=== PATIENT | female | born 1980 | race Hispanic/Latino ===

== ENCOUNTER 2020-02-26 11:13 | Emergency (ER) | payer MEDICAID, SELFPAY ==
--- NOTE | ~2020-02-26 | XR_ITS ---
EXAMINATION: XR chest 1V portable DATE: 02/26/2020 12:36 INDICATION: Cough and fever. Bilateral flank pain. TECHNIQUE: A single frontal view of the chest was obtained. COMPARISON: CT abdomen and pelvis 10/15/2016 FINDINGS: The chest demonstrates clear lungs without pneumonia, pleural effusion, or pneumothorax. Th e heart size is normal. IMPRESSION: 1. No acute cardiopulmonary disease. Reviewed, dictated and finalized at location A.
[2020-02-26 11:27] VITALS: BP 118/75; PULSE 100; RESP 16; TEMP 37.3; O2SAT 99
--- NOTE | 2020-02-26 11:49 | ECG_ITS ---
Measurements Intervals [place] Rate: 89 P: 40 DE: 148 QRS: 7 QRSD: 79 T: 15 QT: 349 QTc: 425 Interpretive Statements SINUS RHYTHM NORMAL ECG Electronically Signed On 02-26-2020 12:45:51 CDT by Bryon Noriega D.O.
[2020-02-26 11:50] VITALS: BP 117/87; PULSE 92; RESP 18; O2SAT 95
--- NOTE | 2020-02-26 11:50 | ED.FEVER ---
HPI - Fever General Chief Complaint: Fever Stated Complaint: lower back pain, fever, urinary issues Time Seen by Provider: 02/26/20 11:40 Source: patient Mode of arrival: ambulatory Limitations: no limitations History of Present Illness HPI Narrative: This patient is a 39 year old female who presents for evaluation of subjective fever, cough, and back pain. Patient developed nonproductive cough 3 days ago. She also complains of mid chest pain with she coughs. LAst night she developed subjective fever and chills. She also has dysuria and burning back pain. Her back pain is located mid back and it radiates down her back. She denies sick contacts. Onset (ago): day(s) (3) Related Data Home Medications Medication Instructions Recorded Confirmed metformin 1,000 mg PO BID 02/26/20 Allergies Allergy/AdvReac Type Severity Reaction Status Date / Time No Known Allergies Allergy Verified 02/26/20 11:31 Review of Systems Review of Systems: All systems reviewed & are unremarkable except as noted in HPI and below Constitutional: Constitutional: Reports chills and Reports fever(s) Cardiovascular: Cardiovascular: Reports chest pain (when cough) Respiratory: Respiratory: Reports cough Gastrointestinal: Gastrointestinal: Reports abdominal pain, Denies diarrhea, Reports nausea and Denies vomiting Genitourinary: Genitourinary: Reports dysuria Musculoskeletal: Musculoskeletal: Reports back pain PMFSH Past Medical History Medical History (Updated 02/26/20 @ 14:46 by Kelly Ramos MD) Diabetes mellitus Surgical History Surgical History (Updated 02/26/20 @ 11:51 by Kelly Ramos MD) Hx of cholecystectomy Social History Social History Gender identity (if verbalized by the patient): Female Exam Narrative: Exam Narrative: GENERAL: Well-appearing, well-nourished, and in no acute distress. HEAD: Normocephalic, atraumatic EYES: PERRLA and EOMI, conjunctiva clear without discharge EARS: TM's clear bilaterally without erythema or dullness THROAT:Mucous membranes moist, Oropharynx normal without erythema, exudate, peritonsillar swelling or fluctuance NECK: Supple, without lymphadenopathy or mass RESPIRATORY: No respiratory distress, Airway patent, Respirations non-labored, Clear to auscultation without rales, rhonchi or wheeze HEART: Regular rate and rhythm. No murmur heard. Normal peripheral pulses. ABDOMEN: Soft,mild suprapubic tenderness, nondistended, no guarding, no rebound normal active bowel sounds. No masses. No rebound or guarding, No organomegaly. bilateral CVA EXTREMITIES: No edema, normal strength with full range of motion. SKIN: Warm, dry, normal color without rash NEURO: Alert and oriented x3. CN 2-12 grossly intact. No focal deficits. PSYCH: Normal mood and affect. Course Reevaluation(s) Reevaluation #1: I have discussed with patient that she will be discharged with antibiotics for UTI. She has also been tested for COVID. She has no AGAP to suggest DKA Date: 02/26/20 Time: 14:43 Vital Signs Vital signs: Vital Signs Temperature 99.2 F 02/26/20 11:27 Pulse Rate 100 02/26/20 11:27 Respiratory Rate 16 02/26/20 11:27 Blood Pressure 118/75 02/26/20 11:27 Pulse Oximetry 99 02/26/20 11:27 Temperature 99.2 F 02/26/20 12:30 Pulse Rate 70 02/26/20 15:03 Respiratory Rate 18 02/26/20 15:03 Blood Pressure 102/79 02/26/20 15:03 Pulse Oximetry 97 02/26/20 15:03 MDM - Fever Lab Data Attestation: I reviewed the patient's lab results. Result diagrams: 02/26/20 12:05 02/26/20 12:05 Labs: Lab Results 02/26/20 02/26/20 02/26/20 Range/Units 12:05 12:05 12:05 WBC 3.8 L (4.5-10.0) K/mm3 RBC 4.68 (4.2-5.4) M/mm3 Hgb 14.8 (12.0-15.0) g/dL Hct 42.0 (37.0-47.0) % MCV 89.7 (80-100) fl MCH 31.6 (26-34) pg MCHC 35.2 (32-36) g/dl RDW 12.0 (11.5-14.5) % Plt Count 225 (150-375)
[2020-02-26] MEDS: KETOROLAC 30 MG/ML VIAL (*BKC) IV PUSH (12:06)
[2020-02-26] MEDS: ONDANSETRON INJ 4 MG/2 ML VIAL IV PUSH (12:06)
[2020-02-26 12:21] LABS: Basophils Percent Auto 0.5 % (0.2-1.2); Eosinophils Percent Auto 1.1 % (0-4.4); Hemoglobin 14.8 g/dL (12.0-15.0); Immature Granulocyte Absolute 0.01 K/mm3 (0.00-0.031); Immature Granulocyte Percent A 0.3 % (0-0.5); Lymphocytes Absolute Auto 1.56 K/mm3 (0.9-3.2); Lymphocytes Percent Auto 41.3 % (18.3-44.2); Mean Corpuscular HGB Conc 35.2 g/dl (32-36); Mean Corpuscular Hemoglobin 31.6 pg (26-34); Mean Corpuscular Volume 89.7 fl (80-100); Mean Platelet Volume 10.1 fl (7.4-10.4); Monocytes Absolute Auto 0.4 K/mm3 (0.1-0.6); Monocytes Percent Auto 11.1 % (2.6-8.5); Neutrophils Absolute Auto 1.7 K/mm3 (1.3-6.7); Neutrophils Percent Auto 45.7 % (45.5-73.1); Platelet Count Result 225 k/mm3 (150-375); Red Blood Count 4.68 M/mm3 (4.2-5.4); White Blood Count 3.8 K/mm3 (4.5-10.0)
[2020-02-26 12:26] LABS: Add Urine Microscopic? YES; Appearance Urine Clear (Clear); Bacteria Urine Trace /hpf; Bilirubin Urine Negative (Negative); Color Urine Yellow (Yellow); Glucose Urine UA 3+ mg/dL (Negative); Ketones Urine Negative (Negative); Leukocyte Esterase Ur Trace LEU/UL (Negative); Mucus Urine Rare /lpf; Nitrate Urine Positive (Negative); Protein Urine 3+ mg/dL (Negative); Specific Grav Ur 1.022 (1.001-1.035); Squamous Epithelial Cell Urine Moderate /hpf (Few); Urobilinogen Urine Negative mg/dL (<2.0); WBC Urine 21-30 /hpf
[2020-02-26 12:27] LABS: Blood Urine Negative (Negative)
[2020-02-26 12:30] VITALS: TEMP 37.3
[2020-02-26 12:31] LABS: Lactic Acid Reflex 1.1 mmol/L (0.7-2.1)
[2020-02-26 12:36] LABS: Alanine Aminotransferase 107 U/L (4-35); Albumin Level 3.7 g/dL (3.5-5.1); Alkaline Phosphatase 69 U/L (38-126); Anion Gap 8 mmol/L (8-16); Aspartate Amino Transferase 65 U/L (14-36); Bilirubin,Total 0.1 mg/dL (0.2-1.3); Blood Urea Nitrogen 9 mg/dL (7-17); CRP 1.1 mg/dL (<1.0); Calcium 8.3 mg/dL (8.4-10.2); Carbon Dioxide 25 mmol/L (22-30); Chloride 99 mmol/L (98-107); Estimated CRCL calculation 78 ml/min; Estimated Glomerular Filt Rate > 60; Glucose 263 mg/dL (65-105); Potassium 3.8 mmol/L (3.4-5.0); Sodium 132 mmol/L (137-145)
[2020-02-26 12:38] LABS: D Dimer 0.31 ug/mL (<0.48)
[2020-02-26 12:55] VITALS: BP 115/85; PULSE 86; RESP 20; O2SAT 97
[2020-02-26 14:13] VITALS: BP 102/73; PULSE 76; RESP 18; O2SAT 96
[2020-02-26 15:03] VITALS: BP 102/79; PULSE 70; RESP 18; O2SAT 97
[2020-02-26 22:22] LABS: SARS-CoV-2 RNA PCR Positive
== END 2020-02-26 15:05 | disposition home or self-care (01) ==
PROVIDERS: Emergency Provider General Practice
DX: U07.1 COVID-19 (principal); N39.0 Urinary tract infection, site not specified; E11.9 Type 2 diabetes mellitus without complications; Z79.84 Long term (current) use of oral hypoglycemic drugs
CPT/HCPCS: 36415; 71045; 80053; 81001; 81025; 83605; 85025; 85380; 86140; 87086; 87088; 87635; 93005; 96374; 96375; 99284; C9803; J1885; J2405; U0003

== ENCOUNTER 2020-03-17 07:13 | Inpatient (IN) | payer MEDICAID, SELFPAY ==
--- NOTE | ~2020-03-17 | CT_ITS ---
EXAMINATION: CT abdomen pelvis w con INDICATION: Right lower quadrant pain, nausea and vomiting TECHNIQUE: Computed tomographic images of the abdomen and pelvis were obtained after the administrati on of 100 cc of Omnipaque 350 intravenous contrast. The dose-length product (DLP) was 474.09 mGy-cm. Automated exposure control and iterative reconstruction technique were employed. COMPARISON: 10/15/2016 FINDINGS: There are patchy opacities of the lung bases. The heart size is normal. The liver is diffus agustina low in attenuation when compared with the spleen, consistent with hepatic steatosis. The gallblad ivelisse is surgically absent. The spleen, pancreas, and adrenal glands are normal. There is patchy perfus ion throughout the right kidney and in the left kidney upper pole. There is urothelial enhancement of the ureters. Circumferential bladder wall thickening is noted. The appendix is normal. No pathologic ally enlarged abdominal or pelvic lymph nodes are identified. There is no free intraperitoneal gas or evidence of bowel obstruction. IMPRESSION: 1. Bladder wall thickening, urothelial enhancement of the ureters, and patchy perfusion of the kidney s, findings are suggestive of urinary tract infection with superimposed pyelonephritis. 2. Patchy opacities of the lung bases, consistent with atelectasis versus pneumonia. Reviewed, dictated and finalized at location A. IMPRESSION: 1. Bladder wall thickening, urothelial enhancement of the ureters, and patchy p erfusion of the kidneys, findings are suggestive of urinary tract infection wit h superimposed pyelonephritis. 2. Patchy opacities of the lung bases, consistent with atelectasis versus pneum onia.
--- NOTE | ~2020-03-17 | XR_ITS ---
XR abdomen/kub 1V DATE: 03/18/2020 21:28 INDICATION: Constant nausea, vomiting TECHNIQUE: Portable supine AP views on 03/18/2020 at 2125 hours COMPARISON: 03/17/2020 CT abdomen pelvis FINDINGS: Surgical clips, right upper quadrant, consistent with cholecystectomy. No evidence of bowel obstruction significant abnormal calcification. The lung bases appear clear. Hea rt size appears normal. Included skeletal structures are unremarkable. IMPRESSION: Status post cholecystectomy Nonspecific abdomen Reviewed, dictated and finalized at Location A. Reviewed, dictated and finalized at location A.
--- NOTE | ~2020-03-17 | XR_ITS ---
EXAMINATION: XR chest 2V DATE: 03/17/2020 11:33 INDICATION: Lung infiltrates on CT TECHNIQUE: Frontal and lateral views of the chest are obtained COMPARISON: CT from today FINDINGS: There are patchy airspace opacities of the mid and lower lung zones. There is no pleural ef fusion or pneumothorax. The cardiomediastinal silhouette is normal. The visualized bones and soft tis sues are unremarkable. Cholecystectomy clips are noted in the right upper quadrant. Contrast from ear lier CT examination partially opacifies the urinary tract. IMPRESSION: 1. Patchy opacities of the mid and lower lung zones consistent with atelectasis versus pneumonia. Reviewed, dictated and finalized at location A.
--- NOTE | ~2020-03-17 | XR_ITS ---
EXAMINATION: XR chest 1V portable INDICATION: Shortness of breath TECHNIQUE: Portable AP chest at 0614 hours COMPARISON: 03/17/2020 FINDINGS: Airspace opacities have increased and now involve all lung zones but are worst in the mid a nd lower lung zones. No pleural effusion or pneumothorax is identified. The cardiomediastinal silhoue tte is normal. IMPRESSION: 1. Increasing bilateral airspace opacities, consistent with pneumonia versus atelectasis. Reviewed, dictated and finalized at location A. IMPRESSION: 1. Increasing bilateral airspace opacities, consistent with pneumonia versus at electasis.
[2020-03-17 07:29] VITALS: BP 131/81; PULSE 120; RESP 31; TEMP 37.9; O2SAT 99
--- NOTE | 2020-03-17 07:42 | ED.ABDPAIN ---
HPI - Abdominal Pain General Chief Complaint: Abdominal Pain Stated Complaint: rlq pain with n/v Time Seen by Provider: 03/17/20 07:25 History of Present Illness HPI narrative: Patient is a 39-year-old female who presents ER with right lower quadrant abdominal pain. Reports symptoms began yesterday in her mid abdomen moved to her right lower quadrant. Associate with nausea and vomiting. Pain is worse with any type of movement. Still has pain when just lying still. Febrile upon arrival here. No urinary symptoms. Related Data Home Medications Medication Instructions Recorded Confirmed metformin 1,000 mg PO BID 02/26/20 03/17/20 Allergies Allergy/AdvReac Type Severity Reaction Status Date / Time No Known Allergies Allergy Verified 02/26/20 11:31 Review of Systems Review of Systems: All systems reviewed & are unremarkable except as noted in HPI and below Constitutional: Constitutional: Denies chills and Reports fever(s) ENT: Denies nasal congestion and Denies sore throat Respiratory: Respiratory: Denies cough and Denies dyspnea Gastrointestinal: Gastrointestinal: Reports abdominal pain, Denies diarrhea, Reports nausea and Reports vomiting Genitourinary: Genitourinary: Denies nocturia and Denies dysuria PMFSH Past Medical History Medical History (Updated 03/17/20 @ 19:19 by Trace Silverio MD) COVID-19 (~02/26/20) Hepatic steatosis Type 2 diabetes mellitus Surgical History Surgical History (Updated 03/17/20 @ 13:59 by Ashlee Suarez PA-C) History of cholecystectomy Family History Family History Mother Diabetes mellitus Social History Social History (Updated 03/17/20 @ 13:59 by Ashlee Suarez PA-C) Social History: Surrogate decision maker: Code status: Full code. Smoking status: Never smoker Alcohol intake: never Substance use: never Substance use type: does not use Additional living arrangements comments: Lives in [place] with her and children. Gender identity (if verbalized by the patient): Female Spiritual care concerns: No Exam Narrative: Exam Narrative: GENERAL: Uncomfortable-appearing, well-nourished, and in no acute distress. HEAD: Normocephalic, atraumatic. ENT: Mucous membranes moist. CHEST: Clear to auscultation. No respiratory distress. HEART: Tachycardic and regular. Normal peripheral pulses. ABDOMEN: Soft, moderate tenderness palpation in the right lower quadrant with guarding, nondistended. EXTREMITIES: Normal range of motion. No edema. SKIN: Warm, dry, no rash. NEURO: Alert and oriented x3. PSYCH: Normal mood and affect. Course Course Emergency Course: Admit to hospitalist service for pyelonephritis. Patient still with persistent tachycardia despite treatment of fever and fluids. Patient also has persistent pain in her lower abdomen and will need more pain control. Vital Signs Vital signs: Vital Signs Temperature 100.2 F H 03/17/20 07:29 Pulse Rate 120 H 03/17/20 07:29 Respiratory Rate 31 H 03/17/20 07:29 Blood Pressure 131/81 03/17/20 07:29 Pulse Oximetry 99 03/17/20 07:29 Temperature 97.9 F 03/17/20 14:00 Pulse Rate 113 H 03/17/20 14:00 Respiratory Rate 22 H 03/17/20 14:00 Blood Pressure 116/65 03/17/20 14:00 Pulse Oximetry 98 03/17/20 14:00 MDM - Abdominal Pain Lab Data Result diagrams: 03/17/20 07:43 03/17/20 14:10 Labs: Lab Results 03/17/20 03/17/20 03/17/20 Range/Units 07:43 07:43 07:43 WBC 4.7 (4.5-10.0) K/mm3 RBC 4.19 L (4.2-5.4) M/mm3 Hgb 13.2 (12.0-15.0) g/dL Hct 37.3 (37.0-47.0) % MCV 89.0 (80-100) fl MCH 31.5 (26-34) pg MCHC 35.4 (32-36) g/dl RDW 11.6 (11.5-14.5) % Plt Count 326 (150-375) k/mm3 MPV 9.6 (7.4-10.4) fl Immature Gran % (Auto) Not Reportable Neut % (Auto) Not Reportable Lymph % (Auto) Not R
[2020-03-17] MEDS: SODIUM CHLORIDE 0.9% IV 1,000 ML 999 ML IV CONT ×2 (07:44→12:25)
[2020-03-17] MEDS: MORPHINE SULFATE 4 MG/ML INJ IV PUSH ×3 (07:44→20:50)
[2020-03-17] MEDS: ONDANSETRON INJ 4 MG/2 ML VIAL IV PUSH ×4 (07:45→21:16)
[2020-03-17 07:48] LABS: Hematocrit 37.3 % (37.0-47.0); Hemoglobin 13.2 g/dL (12.0-15.0); Mean Corpuscular HGB Conc 35.4 g/dl (32-36); Mean Corpuscular Hemoglobin 31.5 pg (26-34); Mean Platelet Volume 9.6 fl (7.4-10.4); Platelet Count Result 326 k/mm3 (150-375); Red Blood Count 4.19 M/mm3 (4.2-5.4); Red Cell Distribution Width 11.6 % (11.5-14.5); White Blood Count 4.7 K/mm3 (4.5-10.0)
[2020-03-17 08:00] LABS: Alanine Aminotransferase 133 U/L (4-35); Albumin Level 3.7 g/dL (3.5-5.1); Alkaline Phosphatase 157 U/L (38-126); Anion Gap 11 mmol/L (8-16); Aspartate Amino Transferase 118 U/L (14-36); Bilirubin,Total 1.7 mg/dL (0.2-1.3); Blood Urea Nitrogen 16 mg/dL (7-17); Calcium 9.2 mg/dL (8.4-10.2); Carbon Dioxide 23 mmol/L (22-30); Chloride 100 mmol/L (98-107); Estimated CRCL calculation 68 ml/min; Estimated Glomerular Filt Rate > 60; Glucose 336 mg/dL (65-105); INR 1.1; Potassium 3.8 mmol/L (3.4-5.0); Prothrombin Time 13.4 Seconds (11.1-14.7); Sodium 134 mmol/L (137-145)
[2020-03-17 08:01] LABS: Partial Thromboplastin Time 32.3 SECONDS (22.3-36.8)
[2020-03-17 08:09] LABS: Add Urine Microscopic? YES; Appearance Urine Cloudy (Clear); Bacteria Urine Trace /hpf; Bilirubin Urine Negative (Negative); Blood Urine 1+ (Negative); Color Urine Yellow (Yellow); Glucose Urine UA 3+ mg/dL (Negative); Ketones Urine Negative (Negative); Leukocyte Esterase Ur 3+ LEU/UL (Negative); Nitrate Urine Positive (Negative); Protein Urine 2+ mg/dL (Negative); RBC Urine 21-50 /hpf (0-2); Specific Grav Ur 1.018 (1.001-1.035); Squamous Epithelial Cell Urine Occasional /hpf (Few); Transitional Epi Cells Urine Rare /hpf (None Seen); WBC Clumps Urine Present /HPF; WBC Urine >75 /hpf
[2020-03-17 08:14] LABS: Band Neutrophils Percent 19 % (0-6); Eosinophils Absolute Manual 0.04 K/mm3 (0.02-0.5); Eosinophils Percent Manual 1 % (0-4); Lymphocytes Absolute Manual 0.84 K/mm3 (1.1-4.5); Monocytes Absolute Manual 0.14 K/mm3 (0.1-0.90); Monocytes Percent Manual 3 % (3-9); Neutrophils Absolute Manual 3.66 K/mm3 (1.7-7.2); Neutrophils Percent Manual 59 % (46-73); Total Cells Counted 100
[2020-03-17 08:15] LABS: Platelet Estimate Adequate (Adequate)
[2020-03-17 10:25] VITALS: BP 102/75; PULSE 115; RESP 26; O2SAT 100
--- NOTE | 2020-03-17 11:50 | ADMGEN ---
This patient, Tri Patricia, was admitted to 2 Medical Room 260-01. Patient/family oriented to hospital policies and general routines including ID bracelet, bed and alarms, visiting hours, pain management, procedures, bathroom and other care routines, personal items, smoking policy, room service/diet, and visiting hours. Valuables list has been completed. Information on how to activate the Rapid Response Team has been discussed. Patient/Family are encouraged to report perceived risks to care and to ask questions if they do not understand what they are told or what they should do.
[2020-03-17 12:26] VITALS: BP 101/64; PULSE 121; RESP 35; O2SAT 96
[2020-03-17] MEDS: SODIUM CHLORIDE 0.9% IV 1,000 ML 125 ML IV CONT ×2 (12:46→20:50)
[2020-03-17 14:00] VITALS: BP 116/65; PULSE 113; RESP 22; TEMP 36.6; O2SAT 98; BMI 27.2
[2020-03-17 14:28] LABS: Hemoglobin A1C 9.5 % (<5.7)
[2020-03-17 14:29] LABS: Lipase 38 U/L (23-300)
[2020-03-17 14:30] LABS: Lactic Acid Reflex 2.8 mmol/L (0.7-2.1)
[2020-03-17 14:37] LABS: Anion Gap 7 mmol/L (8-16); Blood Urea Nitrogen 15 mg/dL (7-17); Calcium 7.7 mg/dL (8.4-10.2); Carbon Dioxide 21 mmol/L (22-30); Chloride 107 mmol/L (98-107); Estimated CRCL calculation 76 ml/min; Estimated Glomerular Filt Rate > 60; Glucose 258 mg/dL (65-105); Lactate Dehydrogenase 673 U/L (313-618); Magnesium 1.1 mg/dL (1.6-2.3); Potassium 3.6 mmol/L (3.4-5.0); Sodium 135 mmol/L (137-145)
[2020-03-17 14:44] LABS: CRP 17.3 mg/dL (<1.0)
[2020-03-17 15:41] LABS: Hepatitis B Surface Antigen Negative (Negative)
[2020-03-17 15:47] LABS: HAV RESULT Negative (Negative); Hepatitis B Core IgM Result Negative (Negative)
[2020-03-17 15:58] LABS: Hepatitis C Virus Antibody Negative (Negative)
[2020-03-17 17:15] LABS: Reflex Lactic Acid Yes or No Add Lactic
[2020-03-17 17:38] LABS: Glucose Point of Care 325 (65-105)
[2020-03-17 17:52] LABS: Lactic Acid 3.5 mmol/L (0.7-2.1)
[2020-03-17] MEDS: INSULIN ASPART (*BKC) 100 UNITS/ML SUB-Q (17:54)
[2020-03-17 20:54] VITALS: BP 105/60; PULSE 108; RESP 16; TEMP 36.8; O2SAT 99
[2020-03-17] MEDS: guaiFENesin/DEXTROMETHORPHAN 10 ML UDC PO (22:07)
--- NOTE | 2020-03-17 22:30 | PM.IMHP ---
H&P: HPI History of Present Illness Date/Time: 03/17/20 22:30 Chief complaint: Right lower quadrant pain. Narrative: Tri Patricia is a 39-year-old female with type 2 diabetes who presented to the emergency department earlier today from home for evaluation of right lower quadrant pain. For the last couple of days she has had pain in her right lower quadrant radiating in to the right flank and back. She has a difficult time describing the pain and gives no real aggravating or alleviating factors. She has been taking Naprosyn which does not seem to help much. She has also been running a fever for the last 2 days with a decrease in appetite nausea and occasional emesis. Her urine has been a bit darker than usual and she has mild dysuria, but nothing significant. With further questioning it seems like her emesis is related more to coughing fits and her cough has been productive of green phlegm the past few days. She also has mild shortness of breath and occasional chest heaviness related to her coughing fits. It is noted that she was diagnosed with COVID-19 on February 25 after being sick for 2 days and she felt poorly for about 2 weeks but has been afebrile for at least 1 week, aside from the last 2 days. She also reports testing negative for COVID-19 this past Friday, and was able to return to work Friday. Last evening she had some loose stools and she does report a recent history of antibiotic use, being prescribed Bactrim on 02/26/2020 at the time that she was diagnosed with COVID-19. She completed a course of those antibiotics, and it seems like her symptoms resolved. Currently she denies headache, anosmia, dysgeusia, chest pain, racing heart, or pleuritic pain. No blood or mucus in the stools. She has not had any significant diarrhea since admission. No recent travel. She denies vaginal discharge. Review of Systems Review of Systems: Narrative: Twelve systems were reviewed with pertinent positives and negatives as per HPI. Except as documented, all other systems were reviewed and are negative. [facility] Past Medical History Medical History COVID-19 (~02/26/20) Hepatic steatosis Type 2 diabetes mellitus Surgical History Surgical History (Updated 03/17/20 @ 13:59 by Ashlee Suarez PA-C) History of cholecystectomy Family History Family History Mother Diabetes mellitus Social History Social History (Updated 03/17/20 @ 23:56 by Ashlee Suarez PA-C) Social History: Surrogate decision maker: [employer], friend. Code status: Full code. Smoking status: Never smoker Alcohol intake: never Substance use: never Substance use type: does not use Additional living arrangements comments: Lives in [place] with family. Gender identity (if verbalized by the patient): Female Spiritual care concerns: No Meds Home Medications and Allergies Home Medications Medication Instructions Recorded Confirmed Type metformin 1,000 mg PO BID 02/26/20 03/17/20 History Allergies Allergy/AdvReac Type Severity Reaction Status Date / Time No Known Allergies Allergy Verified 02/26/20 11:31 Vital Signs Vital Signs - 24 hr 03/17/20 07:29 03/17/20 10:25 03/17/20 12:26 Temperature 100.2 F H Pulse Rate 120 H 115 H 121 H Respiratory Rate 31 H 26 H 35 H Blood Pressure 131/81 102/75 101/64 Pulse Oximetry 99 100 96 Exam Narrative: Exam Narrative: General: Mildly ill-appearing female in the semi-Post position in bed in no distress. Weight: 67.6 kg. BMI: 27.3. HEENT: PERRL, EOMI. Sclerae anicteric. Oral mucosa tacky. Neck: Supple. No lymphadenopathy. Respiratory: Respirations are even and nonlabored. Faint crackles at both bases. Cardiovascular: Regular rate and rhythm with S1-S2. Gastrointestinal: Abdomen is soft and nondistended with positive bow
[2020-03-18 00:40] LABS: Acetaminophen < 10 ug/mL (10-30)
[2020-03-18] MEDS: MAGNESIUM SULFATE 3GM/D5W100ML 3 GM/100 ML BAG IVPB (01:26)
[2020-03-18] MEDS: ONDANSETRON INJ 4 MG/2 ML VIAL IV PUSH ×5 (01:32→20:59)
[2020-03-18] MEDS: MORPHINE SULFATE 4 MG/ML INJ IV PUSH ×4 (01:33→18:41)
[2020-03-18 04:12] LABS: Glucose Point of Care 330 (65-105)
[2020-03-18] MEDS: SODIUM CHLORIDE 0.9% IV 1,000 ML 125 ML IV CONT (04:39)
[2020-03-18] MEDS: guaiFENesin/DEXTROMETHORPHAN 10 ML UDC PO ×2 (05:33→10:05)
[2020-03-18 05:41] LABS: Hematocrit 31.5 % (37.0-47.0); Mean Corpuscular HGB Conc 34.9 g/dl (32-36); Mean Corpuscular Hemoglobin 31.5 pg (26-34); Mean Corpuscular Volume 90.3 fl (80-100); Mean Platelet Volume 10.2 fl (7.4-10.4); Platelet Count Result 209 k/mm3 (150-375); Red Blood Count 3.49 M/mm3 (4.2-5.4); Red Cell Distribution Width 12.4 % (11.5-14.5); White Blood Count 21.4 K/mm3 (4.5-10.0)
[2020-03-18 05:51] LABS: INR 1.5; Prothrombin Time 17.6 Seconds (11.1-14.7)
[2020-03-18 05:52] LABS: Partial Thromboplastin Time 42.5 SECONDS (22.3-36.8)
[2020-03-18 05:59] LABS: Lactic Acid 2.1 mmol/L (0.7-2.1)
[2020-03-18 06:00] VITALS: BP 112/74; PULSE 104; RESP 18; TEMP 36.7; O2SAT 98
[2020-03-18 06:32] LABS: Alanine Aminotransferase 120 U/L (4-35); Albumin Level 2.8 g/dL (3.5-5.1); Alkaline Phosphatase 115 U/L (38-126); Anion Gap 6 mmol/L (8-16); Aspartate Amino Transferase 71 U/L (14-36); Bilirubin,Total 0.6 mg/dL (0.2-1.3); Blood Urea Nitrogen 14 mg/dL (7-17); Calcium 7.5 mg/dL (8.4-10.2); Carbon Dioxide 23 mmol/L (22-30); Chloride 104 mmol/L (98-107); Estimated CRCL calculation 66 ml/min; Estimated Glomerular Filt Rate > 60; Glucose 309 mg/dL (65-105); Lactate Dehydrogenase 595 U/L (313-618); Magnesium 2.5 mg/dL (1.6-2.3); Potassium 3.5 mmol/L (3.4-5.0); Sodium 133 mmol/L (137-145)
[2020-03-18 09:04] LABS: Band Neutrophils Percent 14 % (0-6); Lymphocytes Absolute Manual 1.92 K/mm3 (1.1-4.5); Neutrophils Absolute Manual 19.47 K/mm3 (1.7-7.2); Neutrophils Percent Manual 77 % (46-73); Total Cells Counted 100
[2020-03-18 09:05] LABS: Platelet Estimate Adequate (Adequate)
[2020-03-18] MEDS: ENOXAPARIN 40 MG/0.4 ML SYRINGE SUB-Q (09:11)
[2020-03-18 09:31] LABS: Glucose Point of Care 256 (65-105)
[2020-03-18] MEDS: INSULIN ASPART (*BKC) 100 UNITS/ML SUB-Q ×3 (09:33→17:19)
[2020-03-18 09:36] LABS: CRP 33.5 mg/dL (<1.0)
[2020-03-18 11:43] LABS: Glucose Point of Care 271 (65-105)
--- NOTE | 2020-03-18 11:51 | PM.IMPN ---
Progress Note: A&P Assessment and Plan (1) Septicemia: Code(s): A41.9 - Sepsis, unspecified organism Status: Acute Assessment and Plan: Severe sepsis with septicemia present on admission and supported by low-grade fever, tachycardia, and elevated lactic acid level. Related to the pyelonephritis and bacteremia +/- PNA. Still tachycardic. Fever curve is improved. White count is much higher with persistent bandemia. Urine culture pending. Blood culture (2of2) growing gram-negative bacilli from aerobic and anaerobic bottles. INR now elevated. Will change to Zosyn. (2) Pyelonephritis: Code(s): N12 - Tubulo-interstitial nephritis, not specified as acute or chronic Status: Acute Assessment and Plan: UA consistent with UTI. CT Abd/pelvis showing bladder wall thickening, urothelial enhancement of the ureters, and patchy perfusion of the kidneys c/w pyelonephritis. As above. (3) Elevated LFTs: Code(s): R79.89 - Other specified abnormal findings of blood chemistry Status: Acute Assessment and Plan: AST 118 and ALT 133 on admission. AST/ALT trending down today. LFTs were elevated in February at 65 and 107 respectfully. Acetaminophen level negative. Hepatitis panel negative. CT scan shows that the liver is diffusely low in attenuation when compared with the spleen, consistent with hepatic steatosis. She is known to have hepatic steatosis. Levels probably elevated more acutely related to the ongoing infection with underlying chronic elevation. Continue to follow. (4) Opacity of lung on imaging study: Code(s): R91.8 - Other nonspecific abnormal finding of lung field Status: Acute Assessment and Plan: CXR showing patchy opacities of the mid and lower lung zones. CT Abdomen also showing patchy opacities of the lung bases. Atelectasis versus pneumonia. Patient does have a productive cough and pleuritic chest pain to suggest pneumonia. This may well be residual from a recent COVID-19 but concern for post-viral PNA. Sputum Cx ordered. Will check MRSA swab. Add Vanco. (5) Type 2 diabetes mellitus: Qualifiers: Diabetes mellitus [employer] insulin use: without [employer] use Code(s): E11.9 - Type 2 diabetes mellitus without complications Status: Acute Assessment and Plan: A1c 9.6. Takes Metformin at home and this is on hold. The patient's blood glucose was reviewed on 03/18 Glucose remains elevated Continue AccuCheks covering with sliding scale. Hypoglycemia protocol available as needed. Add Levemir. (6) DVT prophylaxis: Code(s): Z29.9 - Encounter for prophylactic measures, unspecified Status: Acute Assessment and Plan: Lovenox Subjective Date/time seen: 03/18/20 11:51 Interval history: 39yo female with DM here for pyelonephritis and possible PNA. Patient with pleuritic CP and cough productive of greenish sputum. Tested positive for COVID on 02/25 but negative on 03/11. Still with mid back pain R>L. No fevers but having chills. Was having fevers at home. +n/v but tolerating clears today. Walking to the BR. Complains of RLQ and flank abd pain. For her DM, she checks her glucose at home BID. In the morning, glucose runs 160-180 but into the 300's in the evenings. Exam Narrative: Exam Narrative: Tm 100.2 98.1 112/74 104 18 98% ra Gen - NARD Sitting up in bed Chest - bibasilar inspiratory crackles. Patient had difficulty taking deep breaths. Normal respiratory rate. No conversational dyspnea. CV - mildly tachycardic. Regular Abd - Soft. Nondistended. Positive bowel sounds. Right lower quadrant and right flank pain to palpation
[2020-03-18 14:00] VITALS: BP 133/74; PULSE 106; RESP 16; TEMP 37; O2SAT 98
[2020-03-18 16:46] LABS: Glucose Point of Care 274 (65-105)
[2020-03-18] MEDS: SODIUM CHLORIDE 0.9% IV 1,000 ML 100 ML IV CONT ×2 (20:58→23:59)
[2020-03-18] MEDS: INSULIN DETEMIR 100 UNITS/ML 10 UNITS SUB-Q (21:04)
[2020-03-18 21:09] VITALS: BP 127/75; PULSE 108; RESP 20; TEMP 37.7; O2SAT 98
--- NOTE | 2020-03-18 21:15 | PC.NURSE ---
pt vomited immediately after trying to give something for her coughing, pain, nausea and vomiting. Everything immediately vomited up.
[2020-03-18 21:26] LABS: Glucose Point of Care 240 (65-105)
[2020-03-19] MEDS: LEVALBUTEROL HFA (*SP) 15 GM INHALER 2 PUFF INHALATION ×5 (00:17→16:51)
[2020-03-19] MEDS: ONDANSETRON INJ 4 MG/2 ML VIAL IV PUSH ×4 (02:54→21:15)
[2020-03-19 05:37] LABS: Basophils Absolute Auto 0.2 K/mm3 (0.0-0.1); Basophils Percent Auto 0.9 % (0.2-1.2); Eosinophils Absolute Auto 0.1 K/mm3 (0-0.3); Eosinophils Percent Auto 0.3 % (0-4.4); Hematocrit 28.7 % (37.0-47.0); Hemoglobin 9.9 g/dL (12.0-15.0); Immature Granulocyte Absolute 0.14 K/mm3 (0.00-0.031); Immature Granulocyte Percent A 0.8 % (0-0.5); Lymphocytes Absolute Auto 1.29 K/mm3 (0.9-3.2); Lymphocytes Percent Auto 7.5 % (18.3-44.2); Mean Corpuscular HGB Conc 34.5 g/dl (32-36); Mean Platelet Volume 10.3 fl (7.4-10.4); Monocytes Absolute Auto 0.9 K/mm3 (0.1-0.6); Monocytes Percent Auto 5.1 % (2.6-8.5); Neutrophils Absolute Auto 14.7 K/mm3 (1.3-6.7); Neutrophils Percent Auto 85.4 % (45.5-73.1); Platelet Count Result 190 k/mm3 (150-375); Red Blood Count 3.19 M/mm3 (4.2-5.4); Red Cell Distribution Width 12.8 % (11.5-14.5); White Blood Count 17.2 K/mm3 (4.5-10.0)
[2020-03-19 05:50] LABS: Alanine Aminotransferase 79 U/L (4-35); Albumin Level 2.6 g/dL (3.5-5.1); Alkaline Phosphatase 142 U/L (38-126); Anion Gap 4 mmol/L (8-16); Aspartate Amino Transferase 34 U/L (14-36); Bilirubin,Total 0.6 mg/dL (0.2-1.3); Blood Urea Nitrogen 11 mg/dL (7-17); Calcium 7.5 mg/dL (8.4-10.2); Carbon Dioxide 24 mmol/L (22-30); Chloride 107 mmol/L (98-107); Estimated CRCL calculation 60 ml/min; Estimated Glomerular Filt Rate > 60; Glucose 212 mg/dL (65-105); Magnesium 2.3 mg/dL (1.6-2.3); Phosphorus 2.6 mg/dL (2.5-4.5); Potassium 3.3 mmol/L (3.4-5.0); Sodium 135 mmol/L (137-145)
[2020-03-19 06:00] VITALS: BP 107/56; PULSE 106; RESP 18; TEMP 36.7; O2SAT 95
[2020-03-19 06:13] LABS: INR 1.2; Prothrombin Time 14.8 Seconds (11.1-14.7)
[2020-03-19 06:14] LABS: Partial Thromboplastin Time 39.1 SECONDS (22.3-36.8)
[2020-03-19 07:49] LABS: Glucose Point of Care 224 (65-105)
[2020-03-19] MEDS: POTASSIUM CHLORIDE 20 MEQ TABLET 40 MEQ PO (08:23)
[2020-03-19] MEDS: INSULIN ASPART (*BKC) 100 UNITS/ML SUB-Q ×2 (08:24→11:55)
[2020-03-19] MEDS: ENOXAPARIN 40 MG/0.4 ML SYRINGE SUB-Q (08:24)
[2020-03-19] MEDS: INSULIN DETEMIR 100 UNITS/ML 15 UNITS SUB-Q (08:25)
[2020-03-19] MEDS: SODIUM CHLORIDE 0.9% IV 1,000 ML 100 ML IV CONT ×2 (08:37→23:52)
[2020-03-19 11:55] LABS: Glucose Point of Care 213 (65-105)
[2020-03-19 14:00] VITALS: BP 103/56; PULSE 96; RESP 16; TEMP 36.3; O2SAT 95
--- NOTE | 2020-03-19 14:05 | PM.IMPN ---
Progress Note: A&P Assessment and Plan (1) Septicemia: Code(s): A41.9 - Sepsis, unspecified organism Status: Acute Assessment and Plan: Severe sepsis with septicemia present on admission and supported by low-grade fever, tachycardia, and elevated lactic acid level. Related to the pyelonephritis and bacteremia +/- PNA. Still tachycardic. Fever resolved. White count slight better. Urine culture growing ESBL EColi sensitive to Zosyn. Blood culture (2of2) also growing ESBL EColi with similar resistance pattern. Will change to Ertapenem. Continue Vanco. (2) Pyelonephritis: Code(s): N12 - Tubulo-interstitial nephritis, not specified as acute or chronic Status: Acute Assessment and Plan: UA consistent with UTI. CT Abd/pelvis showing bladder wall thickening, urothelial enhancement of the ureters, and patchy perfusion of the kidneys c/w pyelonephritis. As above. (3) Elevated LFTs: Code(s): R79.89 - Other specified abnormal findings of blood chemistry Status: Acute Assessment and Plan: AST 118 and ALT 133 on admission. AST/ALT trending down. LFTs were elevated in February at 65 and 107 respectfully. Acetaminophen level negative. Hepatitis panel negative. CT scan shows that the liver is diffusely low in attenuation when compared with the spleen, consistent with hepatic steatosis. She is known to have hepatic steatosis. Levels probably elevated more acutely related to the ongoing infection with underlying chronic elevation. Continue to follow. (4) Opacity of lung on imaging study: Code(s): R91.8 - Other nonspecific abnormal finding of lung field Status: Acute Assessment and Plan: CXR showing patchy opacities of the mid and lower lung zones. CT Abdomen also showing patchy opacities of the lung bases. Atelectasis versus pneumonia. Patient does have a productive cough with post-tussive emesis. This may well be residual from a recent COVID-19 but concern for post-viral PNA. Sputum Cx NGTD. MRSA nasal swab pending. Continue Zosyn and Vanco. Will use Ativan for anxiety to see if this improves this post-tussive emesis. (5) Type 2 diabetes mellitus: Qualifiers: Diabetes mellitus care home insulin use: without long term care administrator use Code(s): E11.9 - Type 2 diabetes mellitus without complications Status: Acute Assessment and Plan: A1c 9.6. Takes Metformin at home and this is on hold. The patient's blood glucose was reviewed on 03/19 Glucose remains elevated in the 200 Continue AccuCheks covering with sliding scale. Hypoglycemia protocol available as needed. Advance Levemir. (6) DVT prophylaxis: Code(s): Z29.9 - Encounter for prophylactic measures, unspecified Status: Acute Assessment and Plan: Lovenox Subjective Date/time seen: 03/19/20 14:05 Interval history: 39yo female with DM here for pyelonephritis and possible PNA. +BM. Having coughing jags with nausea. Walking to the [place]. Slept okay. Lightheaded when up walking. Exam Narrative: Exam Narrative: AF 98.0 107/56 106 18 95% ra BP without change from lying to sitting to standing today Gen - NARD sitting up in bed; having coughing jag to the point she vomits and een has urine incontinence Chest - CTA bilaterally, nml RR CV - RRR S1/S2 Abd - soft, ND, +BS with mild right sided abd pain. No guarding or rebound. Ext - No pedal edema. Psych - Nml mood and affect Skin - Warm and dry UPT negative 03/17/20 Objective Data Vital Signs Vital Signs: Vital Signs - 24 hr 03/18/20 21:09 03/19/20 06:00 Temperature 99.8 F H 98.0 F Pulse Rate 108 H 106 H Respiratory Rate 20 18 Blood Pressu
[2020-03-19] MEDS: ERTAPENEM 1 GM/NS 50 ML 1 GM/50 ML BAG IVPB (14:45)
[2020-03-19 16:50] LABS: Glucose Point of Care 166 (65-105)
[2020-03-19] MEDS: INSULIN DETEMIR 100 UNITS/ML 18 UNITS SUB-Q (21:32)
[2020-03-19 21:40] LABS: Glucose Point of Care 123 (65-105)
[2020-03-19 22:00] VITALS: BP 148/92; PULSE 108; RESP 22; TEMP 37; O2SAT 92
[2020-03-20] MEDS: ONDANSETRON INJ 4 MG/2 ML VIAL IV PUSH ×2 (04:39→10:52)
[2020-03-20 05:52] LABS: Basophils Absolute Auto 0.1 K/mm3 (0.0-0.1); Basophils Percent Auto 0.5 % (0.2-1.2); Eosinophils Absolute Auto 0.3 K/mm3 (0-0.3); Eosinophils Percent Auto 2.7 % (0-4.4); Hematocrit 28.7 % (37.0-47.0); Hemoglobin 9.8 g/dL (12.0-15.0); Immature Granulocyte Absolute 0.13 K/mm3 (0.00-0.031); Immature Granulocyte Percent A 1.3 % (0-0.5); Lymphocytes Absolute Auto 1.71 K/mm3 (0.9-3.2); Mean Corpuscular HGB Conc 34.1 g/dl (32-36); Mean Corpuscular Hemoglobin 30.5 pg (26-34); Mean Corpuscular Volume 89.4 fl (80-100); Mean Platelet Volume 10.2 fl (7.4-10.4); Monocytes Percent Auto 10.3 % (2.6-8.5); Neutrophils Absolute Auto 6.9 K/mm3 (1.3-6.7); Neutrophils Percent Auto 68.2 % (45.5-73.1); Platelet Count Result 211 k/mm3 (150-375); Red Blood Count 3.21 M/mm3 (4.2-5.4); Red Cell Distribution Width 12.8 % (11.5-14.5); White Blood Count 10.1 K/mm3 (4.5-10.0)
[2020-03-20 05:53] VITALS: BP 142/84; PULSE 91; RESP 22; TEMP 36.6; O2SAT 97
[2020-03-20 06:17] LABS: Alanine Aminotransferase 84 U/L (4-35); Albumin Level 2.7 g/dL (3.5-5.1); Alkaline Phosphatase 140 U/L (38-126); Anion Gap 5 mmol/L (8-16); Aspartate Amino Transferase 55 U/L (14-36); Bilirubin,Total 0.7 mg/dL (0.2-1.3); Blood Urea Nitrogen 11 mg/dL (7-17); Calcium 7.7 mg/dL (8.4-10.2); Carbon Dioxide 24 mmol/L (22-30); Chloride 108 mmol/L (98-107); Estimated CRCL calculation 66 ml/min; Estimated Glomerular Filt Rate > 60; Glucose 119 mg/dL (65-105); Sodium 137 mmol/L (137-145)
[2020-03-20 07:00] LABS: Potassium 3.2 mmol/L (3.4-5.0)
[2020-03-20 08:07] LABS: Glucose Point of Care 104 (65-105)
[2020-03-20] MEDS: POTASSIUM CHLORIDE 20 MEQ TABLET 40 MEQ PO (09:02)
[2020-03-20] MEDS: ENOXAPARIN 40 MG/0.4 ML SYRINGE SUB-Q (09:03)
[2020-03-20] MEDS: INSULIN DETEMIR 100 UNITS/ML 18 UNITS SUB-Q (09:03)
[2020-03-20] MEDS: LEVALBUTEROL HFA (*SP) 15 GM INHALER 2 PUFF INHALATION ×3 (09:19→20:37)
[2020-03-20] MEDS: SODIUM CHLORIDE 0.9% IV 1,000 ML 100 ML IV CONT (10:52)
[2020-03-20 11:35] LABS: Glucose Point of Care 146 (65-105)
[2020-03-20 14:00] VITALS: BP 144/86; PULSE 93; RESP 19; TEMP 37; O2SAT 91
[2020-03-20] MEDS: ACETAMINOPHEN 325 MG TABLET 650 MG PO ×2 (14:08→20:44)
[2020-03-20] MEDS: ERTAPENEM 1 GM/NS 50 ML 1 GM/50 ML BAG IVPB (14:09)
--- NOTE | 2020-03-20 16:35 | PM.IMPN ---
Progress Note: A&P Assessment and Plan (1) Septicemia: Code(s): A41.9 - Sepsis, unspecified organism Status: Acute Assessment and Plan: Severe sepsis with septicemia present on admission and supported by low-grade fever, and tachycardia. Organ dysfunction as seen with the elevated lactic acid level to 3.5. Related to the pyelonephritis and ESBL EColi bacteremia +/- PNA. Fever resolved. White count near normal and tachycardia improved. Urine culture growing ESBL EColi. Blood culture (2of2) also growing ESBL EColi with similar resistance pattern. Continue Ertapenem Day 2. Stop Vanco. (2) Pyelonephritis: Code(s): N12 - Tubulo-interstitial nephritis, not specified as acute or chronic Status: Acute Assessment and Plan: UA consistent with UTI. CT Abd/pelvis showing bladder wall thickening, urothelial enhancement of the ureters, and patchy perfusion of the kidneys c/w pyelonephritis. As above. (3) Elevated LFTs: Code(s): R79.89 - Other specified abnormal findings of blood chemistry Status: Acute Assessment and Plan: AST 118 and ALT 133 on admission. AST/ALT were trending down but slightly higher today. LFTs were elevated in February at 65 and 107 respectfully. Acetaminophen level negative. Hepatitis panel negative. CT scan shows that the liver is diffusely low in attenuation when compared with the spleen, consistent with hepatic steatosis. She is known to have hepatic steatosis. Levels probably elevated more acutely related to the ongoing infection with underlying chronic elevation. Current values may be at baseline. Continue to follow. (4) Opacity of lung on imaging study: Code(s): R91.8 - Other nonspecific abnormal finding of lung field Status: Acute Assessment and Plan: CXR showing patchy opacities of the mid and lower lung zones. CT Abdomen also showing patchy opacities of the lung bases. Atelectasis versus pneumonia. Patient does have a productive cough with post-tussive emesis. This may well be residual from a recent COVID-19 but concern for post-viral PNA. Sputum Cx negative. MRSA nasal swab negative. Will stop Vanco. Ativan appears to have improved her post-tussive emesis. (5) Type 2 diabetes mellitus: Qualifiers: Diabetes mellitus halfway insulin use: without halfway use Code(s): E11.9 - Type 2 diabetes mellitus without complications Status: Acute Assessment and Plan: A1c 9.6. Takes Metformin at home and this is on hold. The patient's blood glucose was reviewed on 03/20 Glucose much better controlled now. Continue AccuCheks covering with sliding scale. Hypoglycemia protocol available as needed. Decrease Levemir to prevent hypoglycemia (6) Anemia: Code(s): D64.9 - Anemia, unspecified Status: Acute Assessment and Plan: Hgb 13.2 on admission but has dropped to 9.8 today. No evidence of acute blood loss. COuld be related to the IV fluids. Will stop IV fluids and check iron studies, etc. Follow for now. (7) DVT prophylaxis: Code(s): Z29.9 - Encounter for prophylactic measures, unspecified Status: Acute Assessment and Plan: Lovenox Subjective Date/time seen: 03/20/20 16:35 Interval history: 39yo female with DM here for pyelonephritis and possible PNA. Patient is up walking to the bathroom with staff. She is however having urine incontinence with having to wear depends. She states she cannot hold her urine. She still coughing without significant change. She is still nauseous but able to eat. Still feels dizzy when she sits up. She has been sitting up in the chair today however. Exam
[2020-03-20 17:01] LABS: Glucose Point of Care 87 (65-105)
[2020-03-20 20:00] VITALS: BP 158/95; PULSE 83; RESP 22; TEMP 36.6; O2SAT 96
[2020-03-20] MEDS: INSULIN DETEMIR 100 UNITS/ML 12 UNITS SUB-Q (20:39)
[2020-03-20 20:49] LABS: Glucose Point of Care 116 (65-105)
[2020-03-21] MEDS: LEVALBUTEROL HFA (*SP) 15 GM INHALER 2 PUFF INHALATION ×5 (00:20→21:05)
[2020-03-21 04:00] VITALS: BP 137/85; PULSE 99; RESP 22; TEMP 36.8; O2SAT 94
[2020-03-21 05:28] LABS: Basophils Absolute Auto 0.1 K/mm3 (0.0-0.1); Basophils Percent Auto 0.9 % (0.2-1.2); Eosinophils Absolute Auto 0.3 K/mm3 (0-0.3); Eosinophils Percent Auto 3.9 % (0-4.4); Hematocrit 30.7 % (37.0-47.0); Hemoglobin 10.7 g/dL (12.0-15.0); Immature Granulocyte Absolute 0.59 K/mm3 (0.00-0.031); Immature Granulocyte Percent A 6.8 % (0-0.5); Lymphocytes Absolute Auto 2.03 K/mm3 (0.9-3.2); Lymphocytes Percent Auto 23.4 % (18.3-44.2); Mean Corpuscular HGB Conc 34.9 g/dl (32-36); Mean Corpuscular Hemoglobin 31.5 pg (26-34); Mean Corpuscular Volume 90.3 fl (80-100); Mean Platelet Volume 9.8 fl (7.4-10.4); Monocytes Absolute Auto 1.3 K/mm3 (0.1-0.6); Monocytes Percent Auto 14.6 % (2.6-8.5); Neutrophils Absolute Auto 4.4 K/mm3 (1.3-6.7); Neutrophils Percent Auto 50.4 % (45.5-73.1); Nucleated Red Blood Cells Perc 0.5 % (0.0-0.2); Platelet Count Result 218 k/mm3 (150-375); Red Cell Distribution Width 13.2 % (11.5-14.5); White Blood Count 8.7 K/mm3 (4.5-10.0)
[2020-03-21 05:40] LABS: Alanine Aminotransferase 110 U/L (4-35); Albumin Level 2.8 g/dL (3.5-5.1); Alkaline Phosphatase 152 U/L (38-126); Anion Gap 4 mmol/L (8-16); Aspartate Amino Transferase 77 U/L (14-36); Bilirubin,Total 0.6 mg/dL (0.2-1.3); Blood Urea Nitrogen 10 mg/dL (7-17); Carbon Dioxide 25 mmol/L (22-30); Chloride 110 mmol/L (98-107); Estimated CRCL calculation 60 ml/min; Estimated Glomerular Filt Rate > 60; Glucose 86 mg/dL (65-105); Magnesium 2.2 mg/dL (1.6-2.3); Phosphorus 2.4 mg/dL (2.5-4.5); Potassium 3.4 mmol/L (3.4-5.0); Sodium 139 mmol/L (137-145)
[2020-03-21 05:59] LABS: Iron 40 ug/dL (37-170)
[2020-03-21 06:08] LABS: Percent Iron Saturation 17 % (20-50)
[2020-03-21 06:48] LABS: Folic Acid 9.8 ng/mL (2.76->20); Vitamin B12 > 1000.0 pg/mL (239-931)
[2020-03-21 07:40] LABS: Glucose Point of Care 74 (65-105)
[2020-03-21] MEDS: ENOXAPARIN 40 MG/0.4 ML SYRINGE SUB-Q (09:36)
[2020-03-21] MEDS: POTASSIUM CHLORIDE 20 MEQ TABLET 40 MEQ PO (09:36)
[2020-03-21] MEDS: INSULIN DETEMIR 100 UNITS/ML 12 UNITS SUB-Q (09:36)
[2020-03-21 11:28] LABS: Glucose Point of Care 124 (65-105)
[2020-03-21] MEDS: DOXYCYCLINE HYCLATE 100 MG TABLET PO ×2 (11:28→20:51)
[2020-03-21 14:00] VITALS: BP 142/90; PULSE 90; RESP 17; TEMP 36.9; O2SAT 98
[2020-03-21] MEDS: ERTAPENEM 1 GM/NS 50 ML 1 GM/50 ML BAG IVPB (14:51)
[2020-03-21 15:54] LABS: Pneumococcal Antigen Urine Not Detected (Not Detected)
[2020-03-21 16:32] LABS: Glucose Point of Care 81 (65-105)
--- NOTE | 2020-03-21 17:50 | PM.IMPN ---
Progress Note: A&P Assessment and Plan (1) Septicemia: Code(s): A41.9 - Sepsis, unspecified organism Status: Acute Assessment and Plan: Severe sepsis with septicemia present on admission and supported by low-grade fever, tachycardia, and elevated lactic acid level. Related to the pyelonephritis and bacteremia +/- PNA. Still tachycardic. Fever resolved. White count slight better. Urine culture growing ESBL EColi sensitive to Zosyn. Blood culture (2of2) also growing ESBL EColi with similar resistance pattern. Day 3. Ertapenem. Added doxycycline to her regime since off Vanc now. (2) Pyelonephritis: Code(s): N12 - Tubulo-interstitial nephritis, not specified as acute or chronic Status: Acute Assessment and Plan: UA consistent with UTI. CT Abd/pelvis showing bladder wall thickening, urothelial enhancement of the ureters, and patchy perfusion of the kidneys c/w pyelonephritis. As above. (3) Elevated LFTs: Code(s): R79.89 - Other specified abnormal findings of blood chemistry Status: Acute Assessment and Plan: AST 118 and ALT 133 on admission. AST/ALT trending down. LFTs were elevated in February at 65 and 107 respectfully. Acetaminophen level negative. Hepatitis panel negative. CT scan shows that the liver is diffusely low in attenuation when compared with the spleen, consistent with hepatic steatosis. She is known to have hepatic steatosis. Levels probably elevated more acutely related to the ongoing infection with underlying chronic elevation. Continue to follow. (4) Opacity of lung on imaging study: Code(s): R91.8 - Other nonspecific abnormal finding of lung field Status: Acute Assessment and Plan: CXR showing patchy opacities of the mid and lower lung zones. CT Abdomen also showing patchy opacities of the lung bases. Atelectasis versus pneumonia. Patient does have a productive cough with post-tussive emesis. This may well be residual from a recent COVID-19 but concern for post-viral PNA. Sputum Cx NGTD. MRSA nasal swab pending. Continue ertapenem and now doxycycline. Will use Ativan for anxiety to see if this improves this post-tussive emesis. (5) Type 2 diabetes mellitus: Qualifiers: Diabetes mellitus buttermaker continuous churn insulin use: without buttermaker continuous churn use Code(s): E11.9 - Type 2 diabetes mellitus without complications Status: Acute Assessment and Plan: A1c 9.6. Takes Metformin at home and this is on hold. The patient's blood glucose was reviewed on 03/21 Glucose fasting today 86 Continue AccuCheks covering with sliding scale. Hypoglycemia protocol available as needed. decrease Levemir. to daily (6) DVT prophylaxis: Code(s): Z29.9 - Encounter for prophylactic measures, unspecified Status: Acute Assessment and Plan: Lovenox Subjective Date/time seen: 03/21/20 17:50 Interval history: Date of visit 03/21. 39yo female with DM here for pyelonephritis and possible PNA. Patient is up walking to the bathroom with staff. She is however having urine incontinence with having to wear depends. She states she cannot hold her urine. She still coughing without significant change. She is still nauseous but able to eat. Exam Narrative: Exam Narrative: AF 98.6 142/90 93 19 90% ra Gen - NARD sitting up in chair Chest - few basilar rhonchi, o/w clear CV - RRR S1/S2 Abd - soft, ND, +BS, persistent mild right sided abd pain. No guarding or rebound. Ext - No pedal edema. Psych - Nml mood and affect Skin - Warm and dry Objective Data Vital Signs Vital Signs: Vital Signs - 24 hr 03/20/20 20:00 03/21/20 04:00 03/21/20 14:00 [place]
[2020-03-21 20:22] LABS: Procalcitonin 19.42 ng/mL (<0.10)
[2020-03-21 20:54] LABS: Glucose Point of Care 122 (65-105)
[2020-03-21 21:30] VITALS: PULSE 90; RESP 17; O2SAT 98
[2020-03-21 22:00] VITALS: BP 146/93; PULSE 92; RESP 16; TEMP 37.2; O2SAT 96
--- NOTE | 2020-03-22 02:00 | PCRCNOTE ---
Window of time for administration has passed. See next scheduled administration.
[2020-03-22] MEDS: LEVALBUTEROL HFA (*SP) 15 GM INHALER 2 PUFF INHALATION ×6 (03:37→23:47)
[2020-03-22 04:06] VITALS: BP 144/87; PULSE 86; RESP 12; TEMP 36.7; O2SAT 93
[2020-03-22 05:34] LABS: Hematocrit 31.5 % (37.0-47.0); Hemoglobin 10.7 g/dL (12.0-15.0); Mean Corpuscular Hemoglobin 30.8 pg (26-34); Mean Corpuscular Volume 90.8 fl (80-100); Mean Platelet Volume 10.2 fl (7.4-10.4); Platelet Count Result 237 k/mm3 (150-375); Red Blood Count 3.47 M/mm3 (4.2-5.4); Red Cell Distribution Width 12.8 % (11.5-14.5); White Blood Count 8.2 K/mm3 (4.5-10.0)
[2020-03-22 05:46] LABS: Alanine Aminotransferase 85 U/L (4-35); Alkaline Phosphatase 157 U/L (38-126); Anion Gap 3 mmol/L (8-16); Aspartate Amino Transferase 49 U/L (14-36); Bilirubin,Total 0.4 mg/dL (0.2-1.3); Blood Urea Nitrogen 9 mg/dL (7-17); Calcium 8.3 mg/dL (8.4-10.2); Carbon Dioxide 26 mmol/L (22-30); Chloride 106 mmol/L (98-107); Estimated CRCL calculation 66 ml/min; Estimated Glomerular Filt Rate > 60; Glucose 133 mg/dL (65-105); Potassium 3.6 mmol/L (3.4-5.0); Sodium 135 mmol/L (137-145)
[2020-03-22 06:27] LABS: Atypical Lymphocytes Present; Band Neutrophils Percent 2 % (0-6); Eosinophils Absolute Manual 0.41 K/mm3 (0.02-0.5); Eosinophils Percent Manual 5 % (0-4); Large Platelets Present; Lymphocytes Absolute Manual 2.62 K/mm3 (1.1-4.5); Metamyelocytes Percent 1 %; Monocytes Absolute Manual 0.57 K/mm3 (0.1-0.90); Monocytes Percent Manual 7 % (3-9); Neutrophils Absolute Manual 4.51 K/mm3 (1.7-7.2); Neutrophils Percent Manual 53 % (46-73); Platelet Estimate Adequate (Adequate); Total Cells Counted 100
[2020-03-22 07:54] LABS: Glucose Point of Care 119 (65-105)
[2020-03-22] MEDS: ENOXAPARIN 40 MG/0.4 ML SYRINGE SUB-Q (08:07)
[2020-03-22] MEDS: INSULIN DETEMIR 100 UNITS/ML 12 UNITS SUB-Q (08:07)
[2020-03-22] MEDS: DOXYCYCLINE HYCLATE 100 MG TABLET PO ×2 (08:07→20:17)
[2020-03-22] MEDS: ACETAMINOPHEN 325 MG TABLET 650 MG PO ×2 (10:52→18:18)
[2020-03-22 11:31] LABS: Glucose Point of Care 185 (65-105)
[2020-03-22 14:00] VITALS: BP 141/81; PULSE 95; RESP 15; TEMP 37.1; O2SAT 100
[2020-03-22] MEDS: ERTAPENEM 1 GM/NS 50 ML 1 GM/50 ML BAG IVPB (15:33)
[2020-03-22 16:18] LABS: Legionella pneumophila Ag Ur Not Detected (Not Detected)
--- NOTE | 2020-03-22 16:20 | PM.IMPN ---
Progress Note: A&P Assessment and Plan (1) Septicemia: Code(s): A41.9 - Sepsis, unspecified organism Status: Acute Assessment and Plan: Severe sepsis with septicemia present on admission and supported by low-grade fever, tachycardia, and elevated lactic acid level. Related to the pyelonephritis and bacteremia +/- PNA. Still tachycardic. Fever resolved. White count slight better. Urine culture growing ESBL EColi sensitive to Zosyn. Blood culture (2of2) also growing ESBL EColi with similar resistance pattern. Day 4. Ertapenem. Added doxycycline 03/21 to her regime since off Vanc now. (2) Pyelonephritis: Code(s): N12 - Tubulo-interstitial nephritis, not specified as acute or chronic Status: Acute Assessment and Plan: UA consistent with UTI. CT Abd/pelvis showing bladder wall thickening, urothelial enhancement of the ureters, and patchy perfusion of the kidneys c/w pyelonephritis. As above. (3) Elevated LFTs: Code(s): R79.89 - Other specified abnormal findings of blood chemistry Status: Acute Assessment and Plan: AST 118 and ALT 133 on admission. AST/ALT trending down. LFTs were elevated in February at 65 and 107 respectfully. Acetaminophen level negative. Hepatitis panel negative. CT scan shows that the liver is diffusely low in attenuation when compared with the spleen, consistent with hepatic steatosis. She is known to have hepatic steatosis. Levels probably elevated more acutely related to the ongoing infection with underlying chronic elevation. Continue to fall. (4) Opacity of lung on imaging study: Code(s): R91.8 - Other nonspecific abnormal finding of lung field Status: Acute Assessment and Plan: CXR showing patchy opacities of the mid and lower lung zones. CT Abdomen also showing patchy opacities of the lung bases. Atelectasis versus pneumonia. Patient does have a productive cough with post-tussive emesis which is improving This may well be residual from a recent COVID-19 but concern for post-viral PNA. Sputum Cx NGTD. MRSA nasal swab pending. Continue ertapenem and now doxycycline. Will use Ativan for anxiety to see if this improves this post-tussive emesis. 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 Takes Metformin at home and this is on hold. The patient's blood glucose was reviewed on 03/22 Glucose fasting today 144 Continue AccuCheks covering with sliding scale. Hypoglycemia protocol available as needed. decreased Levemir. to daily 03/21 (6) DVT prophylaxis: Code(s): Z29.9 - Encounter for prophylactic measures, unspecified Status: Acute Assessment and Plan: Lovenox Subjective Date/time seen: 03/22/20 16:20 Interval history: Date of visit 03/22. 39yo female with DM here for pyelonephritis and possible PNA. Patient is up walking to the bathroom with staff. Feeling better today. She still coughing without significant change. Less nauseous and able to eat. Exam Narrative: Exam Narrative: AF 140/80 93 19 100 % ra Gen - NARD sitting up in chair Chest - few basilar rhonchi, o/w clear CV - RRR S1/S2 Abd - soft, ND, +BS, persistent mild right sided abd pain. No guarding or rebound. Ext - No pedal edema. Psych - Nml mood and affect Skin - Warm and dry Objective Data Vital Signs Vital Signs: Vital Signs - 24 hr 03/21/20 21:30 03/21/20 22:00 03/22/20 04:06 Temperature 37.2 C 36.7 C Pulse Rate 90 92 86 Respiratory Rate 17 16 12
[2020-03-22 16:59] LABS: Glucose Point of Care 152 (65-105)
[2020-03-22] MEDS: NYSTATIN 100,000 UNITS/ML SUSP 5 ML ORAL.SUSP PO ×2 (18:50→20:17)
[2020-03-22 21:59] LABS: Glucose Point of Care 177 (65-105)
[2020-03-22 22:00] VITALS: BP 118/66; PULSE 84; RESP 16; TEMP 37.3; O2SAT 96
[2020-03-23] MEDS: LEVALBUTEROL HFA (*SP) 15 GM INHALER 2 PUFF INHALATION ×5 (03:57→20:35)
[2020-03-23 06:00] VITALS: BP 143/83; PULSE 85; RESP 16; TEMP 37.1; O2SAT 95
[2020-03-23 08:04] LABS: Glucose Point of Care 111 (65-105)
[2020-03-23] MEDS: INSULIN DETEMIR 100 UNITS/ML 12 UNITS SUB-Q (08:04)
[2020-03-23] MEDS: ACETAMINOPHEN 325 MG TABLET 650 MG PO (08:07)
[2020-03-23] MEDS: NYSTATIN 100,000 UNITS/ML SUSP 5 ML ORAL.SUSP PO ×4 (08:07→21:43)
[2020-03-23] MEDS: ENOXAPARIN 40 MG/0.4 ML SYRINGE SUB-Q (08:07)
[2020-03-23] MEDS: DOXYCYCLINE HYCLATE 100 MG TABLET PO ×2 (08:07→21:43)
[2020-03-23 11:24] LABS: Glucose Point of Care 187 (65-105)
[2020-03-23 14:00] VITALS: BP 139/82; PULSE 94; RESP 19; TEMP 36.7; O2SAT 100
[2020-03-23] MEDS: ERTAPENEM 1 GM/NS 50 ML 1 GM/50 ML BAG IVPB (15:26)
[2020-03-23 16:46] LABS: Glucose Point of Care 168 (65-105)
--- NOTE | 2020-03-23 17:18 | PM.IMPN ---
Progress Note: A&P Assessment and Plan (1) Septicemia: Code(s): A41.9 - Sepsis, unspecified organism Status: Acute Assessment and Plan: Severe sepsis with septicemia present on admission and supported by low-grade fever, tachycardia, and elevated lactic acid level. Related to the pyelonephritis and bacteremia +/- PNA. Still tachycardic. Fever resolved. White count slight better. Urine culture growing ESBL EColi sensitive to Zosyn. Blood culture (2of2) also growing ESBL EColi with similar resistance pattern. Day 5. Ertapenem. Added doxycycline 03/21 to her regime since off Vanc now. (2) Pyelonephritis: Code(s): N12 - Tubulo-interstitial nephritis, not specified as acute or chronic Status: Acute Assessment and Plan: UA consistent with UTI. CT Abd/pelvis showing bladder wall thickening, urothelial enhancement of the ureters, and patchy perfusion of the kidneys c/w pyelonephritis. As above. (3) Elevated LFTs: Code(s): R79.89 - Other specified abnormal findings of blood chemistry Status: Acute Assessment and Plan: AST 118 and ALT 133 on admission. AST/ALT trending down. LFTs were elevated in February at 65 and 107 respectfully. Acetaminophen level negative. Hepatitis panel negative. CT scan shows that the liver is diffusely low in attenuation when compared with the spleen, consistent with hepatic steatosis. She is known to have hepatic steatosis. Levels probably elevated more acutely related to the ongoing infection with underlying chronic elevation. Continue to fall.recheck am (4) Opacity of lung on imaging study: Code(s): R91.8 - Other nonspecific abnormal finding of lung field Status: Acute Assessment and Plan: CXR showing patchy opacities of the mid and lower lung zones. CT Abdomen also showing patchy opacities of the lung bases. Atelectasis versus pneumonia. Patient does have a productive cough with post-tussive emesis which is improving This may well be residual from a recent COVID-19 but concern for post-viral PNA. Sputum Cx NGTD. MRSA nasal swab pending. Continue ertapenem and now doxycycline. Will use Ativan for anxiety to see if this improves this post-tussive emesis. (5) Type 2 diabetes mellitus: Qualifiers: Diabetes mellitus referral and information aide insulin use: without penitentiary use Code(s): E11.9 - Type 2 diabetes mellitus without complications Status: Acute Assessment and Plan: A1c 9.6. Takes Metformin at home and this is on hold. The patient's blood glucose was reviewed on 03/23 Glucose fasting today 119 Continue AccuCheks covering with sliding scale. Hypoglycemia protocol available as needed. decreased Levemir. to 10 daily resume metformin on d/c (6) DVT prophylaxis: Code(s): Z29.9 - Encounter for prophylactic measures, unspecified Status: Acute Assessment and Plan: Lovenox Subjective Date/time seen: 03/23/20 17:18 Interval history: Date of visit 03/23. 39yo female with DM here for pyelonephritis and possible PNA. Patient is up walking . Feeling better each day. She still coughing without significant change. No longer nauseous and able to eat. Exam Narrative: Exam Narrative: AF 140/66 84 19 100 % ra Gen - NARD sitting up in chair Chest - few basilar rhonchi, o/w clear CV - RRR S1/S2 Abd - soft, ND, +BS, No guarding or rebound. Ext - No pedal edema. Psych - Nml mood and affect Skin - Warm and dry Objective Data Vital Signs Vital Signs: Vital Signs - 24 hr 03/22/20 22:00 03/23/20 06:00 03/23/20 14:00 Temperature 37.3 C 37.1 C 36.7 C Pulse Rate 84 85 94 Respiratory Rate 16 16 19 Blood Pressur
[2020-03-23 21:38] VITALS: BP 133/81; PULSE 94; RESP 16; TEMP 36.4; O2SAT 98
[2020-03-23 21:51] LABS: Glucose Point of Care 232 (65-105)
[2020-03-24 04:38] VITALS: BP 130/80; PULSE 85; RESP 16; TEMP 37; O2SAT 97
[2020-03-24 05:03] LABS: Basophils Absolute Auto 0.1 K/mm3 (0.0-0.1); Basophils Percent Auto 0.5 % (0.2-1.2); Eosinophils Absolute Auto 0.4 K/mm3 (0-0.3); Eosinophils Percent Auto 4.1 % (0-4.4); Hematocrit 29.5 % (37.0-47.0); Hemoglobin 10.3 g/dL (12.0-15.0); Immature Granulocyte Absolute 0.45 K/mm3 (0.00-0.031); Immature Granulocyte Percent A 4.8 % (0-0.5); Lymphocytes Absolute Auto 2.81 K/mm3 (0.9-3.2); Lymphocytes Percent Auto 29.8 % (18.3-44.2); Mean Corpuscular HGB Conc 34.9 g/dl (32-36); Mean Corpuscular Hemoglobin 30.7 pg (26-34); Mean Corpuscular Volume 88.1 fl (80-100); Mean Platelet Volume 9.3 fl (7.4-10.4); Monocytes Absolute Auto 0.6 K/mm3 (0.1-0.6); Neutrophils Absolute Auto 5.2 K/mm3 (1.3-6.7); Neutrophils Percent Auto 54.8 % (45.5-73.1); Platelet Count Result 294 k/mm3 (150-375); Red Blood Count 3.35 M/mm3 (4.2-5.4); White Blood Count 9.4 K/mm3 (4.5-10.0)
[2020-03-24 05:52] LABS: Alanine Aminotransferase 45 U/L (4-35); Albumin Level 2.7 g/dL (3.5-5.1); Alkaline Phosphatase 123 U/L (38-126); Anion Gap 5 mmol/L (8-16); Aspartate Amino Transferase 29 U/L (14-36); Bilirubin,Total 0.5 mg/dL (0.2-1.3); Blood Urea Nitrogen 8 mg/dL (7-17); Calcium 8.1 mg/dL (8.4-10.2); Carbon Dioxide 27 mmol/L (22-30); Chloride 103 mmol/L (98-107); Estimated CRCL calculation 84 ml/min; Estimated Glomerular Filt Rate > 60; Glucose 130 mg/dL (65-105); Potassium 3.9 mmol/L (3.4-5.0); Sodium 135 mmol/L (137-145)
[2020-03-24] MEDS: LEVALBUTEROL HFA (*SP) 15 GM INHALER 2 PUFF INHALATION ×5 (06:05→21:42)
--- NOTE | 2020-03-24 06:28 | PCRCNOTE ---
Window of time for administration has passed. See next scheduled administration.
[2020-03-24] MEDS: ONDANSETRON INJ 4 MG/2 ML VIAL IV PUSH ×2 (06:59→14:02)
[2020-03-24 07:30] LABS: Glucose Point of Care 135 (65-105)
[2020-03-24] MEDS: INSULIN DETEMIR 100 UNITS/ML 10 UNITS SUB-Q (09:27)
[2020-03-24] MEDS: ENOXAPARIN 40 MG/0.4 ML SYRINGE SUB-Q (09:27)
[2020-03-24] MEDS: DOXYCYCLINE HYCLATE 100 MG TABLET PO ×2 (09:27→21:07)
[2020-03-24] MEDS: NYSTATIN 100,000 UNITS/ML SUSP 5 ML ORAL.SUSP PO ×4 (09:27→21:07)
--- NOTE | 2020-03-24 11:11 | PCNWS ---
Weekly nutritional screen. Patient is tolerating current diet with adequate intake. No weight loss reported. No nutritional needs at this time.
[2020-03-24 11:47] LABS: Glucose Point of Care 228 (65-105)
[2020-03-24] MEDS: INSULIN ASPART (*BKC) 100 UNITS/ML SUB-Q (11:54)
[2020-03-24 14:00] VITALS: BP 137/72; PULSE 91; RESP 15; TEMP 36.5; O2SAT 96
[2020-03-24] MEDS: ERTAPENEM 1 GM/NS 50 ML 1 GM/50 ML BAG IVPB (14:02)
[2020-03-24 16:38] LABS: Glucose Point of Care 153 (65-105)
--- NOTE | 2020-03-24 17:59 | PM.IMPN ---
Progress Note: A&P Assessment and Plan (1) Septicemia: Code(s): A41.9 - Sepsis, unspecified organism Status: Acute Assessment and Plan: Severe sepsis with septicemia present on admission and supported by low-grade fever, tachycardia, and elevated lactic acid level. Related to the pyelonephritis and bacteremia +/- PNA. Fever resolved. White count normal. Urine culture growing ESBL EColi sensitive to Zosyn. Blood culture (2of2) also growing ESBL EColi with similar resistance pattern. Day 6. Ertapenem. Added doxycycline 03/21 to her regime since off Vanc now. (2) Pyelonephritis: Code(s): N12 - Tubulo-interstitial nephritis, not specified as acute or chronic Status: Acute Assessment and Plan: UA consistent with UTI. CT Abd/pelvis showing bladder wall thickening, urothelial enhancement of the ureters, and patchy perfusion of the kidneys c/w pyelonephritis. As above. (3) Elevated LFTs: Code(s): R79.89 - Other specified abnormal findings of blood chemistry Status: Acute Assessment and Plan: AST 118 and ALT 133 on admission. AST/ALT trending down. LFTs were elevated in February at 65 and 107 respectfully. Acetaminophen level negative. Hepatitis panel negative. CT scan shows that the liver is diffusely low in attenuation when compared with the spleen, consistent with hepatic steatosis. She is known to have hepatic steatosis. Levels probably elevated more acutely related to the ongoing infection with underlying chronic elevation. ALT 45 this am with normal AST (4) Opacity of lung on imaging study: Code(s): R91.8 - Other nonspecific abnormal finding of lung field Status: Acute Assessment and Plan: CXR showing patchy opacities of the mid and lower lung zones. CT Abdomen also showing patchy opacities of the lung bases. Atelectasis versus pneumonia. Patient does have a productive cough with post-tussive emesis which is improving This may well be residual from a recent COVID-19 but concern for post-viral PNA. Sputum Cx NGTD. MRSA nasal swab neg Continue ertapenem and now doxycycline. Will use Ativan for anxiety to see if this improves this post-tussive emesis. (5) Type 2 diabetes mellitus: Qualifiers: Diabetes mellitus intermodal owner operator truck driver insulin use: without prison use Code(s): E11.9 - Type 2 diabetes mellitus without complications Status: Acute Assessment and Plan: A1c 9.6. Takes Metformin at home and this is on hold. The patient's blood glucose was reviewed on 03/24 Glucose fasting today 130 Continue AccuCheks covering with sliding scale. Hypoglycemia protocol available as needed. decreased Levemir. to 10 daily resume metformin on d/c (6) DVT prophylaxis: Code(s): Z29.9 - Encounter for prophylactic measures, unspecified Status: Acute Assessment and Plan: Lovenox Subjective Date/time seen: 03/24/20 17:59 Interval history: Date of visit 03/24. 39yo female with DM here for pyelonephritis and PNA. Patient is up walking . Feeling better each day. She still coughing without significant change. nauseous again this am but able to eat. Exam Narrative: Exam Narrative: AF 136/72 90 19 96 % ra Gen - NARD sitting up in chair Chest - clear CV - RRR S1/S2 Abd - soft, ND, +BS, No guarding or rebound. Ext - No pedal edema. Psych - Nml mood and affect Skin - Warm and dry Objective Data Vital Signs Vital Signs: Vital Signs - 24 hr 03/23/20 21:38 03/24/20 04:38 03/24/20 14:00 Temperature 36.4 C 37.0 C 36.5 C Pulse Rate 94 85 91 Respiratory Rate 16 16 15 Blood Pressure 133/81 130/80 137/72 Pulse Oximetry 98 97 96 Int
[2020-03-24 21:39] LABS: Glucose Point of Care 157 (65-105)
[2020-03-24 22:00] VITALS: BP 137/79; PULSE 86; RESP 20; TEMP 36.4; O2SAT 98
[2020-03-25] MEDS: LEVALBUTEROL HFA (*SP) 15 GM INHALER 2 PUFF INHALATION ×4 (00:49→15:17)
[2020-03-25 05:46] VITALS: BP 105/67; PULSE 75; RESP 20; TEMP 36.1; O2SAT 91
[2020-03-25 07:40] LABS: Glucose Point of Care 122 (65-105)
--- NOTE | 2020-03-25 07:53 | PC.NURSE ---
received pt transfer from [facility] at 1250
[2020-03-25] MEDS: DOXYCYCLINE HYCLATE 100 MG TABLET PO (09:12)
[2020-03-25] MEDS: NYSTATIN 100,000 UNITS/ML SUSP 5 ML ORAL.SUSP PO ×2 (09:13→12:25)
[2020-03-25] MEDS: ENOXAPARIN 40 MG/0.4 ML SYRINGE SUB-Q (09:13)
[2020-03-25] MEDS: INSULIN DETEMIR 100 UNITS/ML 10 UNITS SUB-Q (09:19)
[2020-03-25] MEDS: ACETAMINOPHEN 325 MG TABLET 650 MG PO ×2 (09:35→13:33)
[2020-03-25] MEDS: ERTAPENEM 1 GM/NS 50 ML 1 GM/50 ML BAG IVPB (09:52)
[2020-03-25 12:02] LABS: Glucose Point of Care 274 (65-105)
[2020-03-25] MEDS: INSULIN ASPART (*BKC) 100 UNITS/ML SUB-Q (12:25)
[2020-03-25 14:00] VITALS: BP 100/62; PULSE 91; RESP 14; TEMP 36.7; O2SAT 99
--- NOTE | 2020-03-25 18:22 | PM.DS ---
DS: Admitting Diagnosis Admitting Diagnosis Admitting Diagnosis: Right lower quadrant pain. DS: Discharge Diagnosis Discharge Diagnosis (1) Septicemia: Code(s): A41.9 - Sepsis, unspecified organism Status: Acute Assessment and Plan: Severe sepsis with septicemia present on admission and supported by low-grade fever, tachycardia, and elevated lactic acid level. Related to the pyelonephritis and bacteremia +/- PNA. Fever resolved. White count normal. Urine culture growing ESBL EColi sensitive to Zosyn. Blood culture (2of2) also growing ESBL EColi with similar resistance pattern. completed 7 days . Ertapenem. Added doxycycline 03/21 to her regime since off Vanc now. and will continue doxycycline on discharge. E coli had intermediate sensitivity to Augmentin and will continue 3 more days Augmentin orally on discharge (2) Pyelonephritis: Code(s): N12 - Tubulo-interstitial nephritis, not specified as acute or chronic Status: Acute Assessment and Plan: UA consistent with UTI. CT Abd/pelvis showing bladder wall thickening, urothelial enhancement of the ureters, and patchy perfusion of the kidneys c/w pyelonephritis. As above. (3) Elevated LFTs: Code(s): R79.89 - Other specified abnormal findings of blood chemistry Status: Acute Assessment and Plan: AST 118 and ALT 133 on admission. AST/ALT trending down. LFTs were elevated in February at 65 and 107 respectfully. Acetaminophen level negative. Hepatitis panel negative. CT scan shows that the liver is diffusely low in attenuation when compared with the spleen, consistent with hepatic steatosis. She is known to have hepatic steatosis. Levels probably elevated more acutely related to the ongoing infection with underlying chronic elevation. ALT 45 a.m. prior to dischargewith normal AST (4) Opacity of lung on imaging study: Code(s): R91.8 - Other nonspecific abnormal finding of lung field Status: Acute Assessment and Plan: CXR showing patchy opacities of the mid and lower lung zones. CT Abdomen also showing patchy opacities of the lung bases. Atelectasis versus pneumonia. Patient does have a productive cough with post-tussive emesis which is improving This may well be residual from a recent COVID-19 but concern for post-viral PNA. Sputum Cx NGTD. MRSA nasal swab neg Continue ertapenem and added doxycycline which she will continue for 4 more days at home. 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 Takes Metformin at home and this Was held while inpatient. Glucose fasting today 133 date of discharge. receive Levemir and sliding scale insulin while here in decreasing doses as infection BP came under control resume metformin on d/c DS: Summary Hospital Course Hospital Course: 39-year-old female admitted with coughing and vomiting and sepsis. Chest x-ray looks to have lower lobe infiltrates and urine and blood grew ESBL E coli. She received 7 days total of IV her to [place] and and 5 days of p.o. doxycycline to treat the pneumonia. Her symptoms all improved with minimal if any nausea discharge taken a diet well. Will continue doxycycline 4 more days with the Augmentin 875 b.i.d. for 3 days which ESBL was intermediate sensitive to. she will return to work on Friday the . encouraged her to have follow-up chest x-ray in 2-4 weeks Time Spent with Patient Time attestation: Total time spent providing and/or coordinating discharge s
== END 2020-03-25 16:20 | disposition home or self-care (01) | DRG 720 ==
LOC: ANHED 07:30 → ANH2MED 11:57
PROVIDERS: Physician Assistant; Admitting Provider Internal Medicine; Emergency Provider Emergency Medicine; Visit Provider Internal Medicine
DX: A41.51 Sepsis due to Escherichia coli [E. coli] (principal); N12 Tubulo-interstitial nephritis, not specified as acute or chronic; R65.20 Severe sepsis without septic shock; K76.0 Fatty (change of) liver, not elsewhere classified; Z16.12 Extended spectrum beta lactamase (ESBL) resistance; R79.89 Other specified abnormal findings of blood chemistry; R91.8 Other nonspecific abnormal finding of lung field; E11.9 Type 2 diabetes mellitus without complications; D64.9 Anemia, unspecified; Z79.84 Long term (current) use of oral hypoglycemic drugs; Z86.19 Personal history of other infectious and parasitic diseases
CPT/HCPCS: 36415; 71045; 71046; 74018; 74177; 80048; 80053; 80074; 80307; 81001; 81025; 82607; 82728; 82746; 83036; 83540; 83550; 83605; 83615; 83690; 83735; 84100; 84145; 84443; 85025; 85610; 85730; 86140; 87040; 87070; 87077; 87081; 87086; 87088; 87186; 87205; 87449; 87899; 94640; 94667; 96361; 96365; 96367; 96368; 96372; 96375; 96376; 99285; A9270; G0378; G0379; J0131; J0456; J0696; J1170; J1335; J1650; J1815; J2060; J2270; J2405; J2543; J3370; J3475; J7030; Q9967

== ENCOUNTER 2020-07-05 17:10 | Emergency (ER) | payer OTHER, SELFPAY ==
[2020-07-05] VITALS (10 sets, daily range): BP systolic 123–134; BP diastolic 78–84; PULSE 72–105; RESP 9–22; TEMP 36.3–36.7; O2SAT 97–99
[2020-07-05 17:43] LABS: Basophils Percent Auto 0.5 % (0.2-1.2); Eosinophils Percent Auto 0.1 % (0-4.4); Hematocrit 43.1 % (37.0-47.0); Hemoglobin 15.2 g/dL (12.0-15.0); Immature Granulocyte Absolute 0.03 K/mm3 (0.00-0.031); Immature Granulocyte Percent A 0.4 % (0-0.5); Lymphocytes Absolute Auto 1.79 K/mm3 (0.9-3.2); Lymphocytes Percent Auto 21.1 % (18.3-44.2); Mean Corpuscular HGB Conc 35.3 g/dl (32-36); Mean Corpuscular Hemoglobin 30.6 pg (26-34); Mean Corpuscular Volume 86.9 fl (80-100); Mean Platelet Volume 9.3 fl (7.4-10.4); Monocytes Absolute Auto 0.7 K/mm3 (0.1-0.6); Monocytes Percent Auto 8.1 % (2.6-8.5); Neutrophils Absolute Auto 5.9 K/mm3 (1.3-6.7); Neutrophils Percent Auto 69.8 % (45.5-73.1); Platelet Count Result 307 k/mm3 (150-375); Red Blood Count 4.96 M/mm3 (4.2-5.4); Red Cell Distribution Width 11.5 % (11.5-14.5); White Blood Count 8.5 K/mm3 (4.5-10.0)
[2020-07-05 17:48] LABS: Add Urine Microscopic? YES; Appearance Urine Cloudy (Clear); Bacteria Urine 1+ /hpf; Bilirubin Urine Negative (Negative); Blood Urine Negative (Negative); Color Urine Yellow (Yellow); Glucose Urine UA 3+ mg/dL (Negative); Ketones Urine Negative (Negative); Leukocyte Esterase Ur 1+ LEU/UL (Negative); Mucus Urine Rare /lpf; Nitrate Urine Negative (Negative); Protein Urine 2+ mg/dL (Negative); Specific Grav Ur 1.015 (1.001-1.035); Squamous Epithelial Cell Urine Rare /hpf (Few); Urobilinogen Urine Negative mg/dL (<2.0); WBC Urine 31-50 /hpf
[2020-07-05 17:55] LABS: Anion Gap 9 mmol/L (8-16); Blood Urea Nitrogen 9 mg/dL (7-17); Calcium 9.5 mg/dL (8.4-10.2); Carbon Dioxide 28 mmol/L (22-30); Chloride 97 mmol/L (98-107); Estimated CRCL calculation 74 ml/min; Estimated Glomerular Filt Rate > 60; Glucose 235 mg/dL (65-105); Potassium 3.9 mmol/L (3.4-5.0); Sodium 134 mmol/L (137-145)
[2020-07-05] MEDS: ONDANSETRON INJ 4 MG/2 ML VIAL IV PUSH (18:05)
[2020-07-05] MEDS: MORPHINE SULFATE (*CRX) 4 MG/ML INJ IV PUSH (18:05)
--- NOTE | 2020-07-05 19:09 | ED.GENADULT ---
HPI - General Adult General Chief complaint: Urogenital-Female Stated complaint: flank pain Time Seen by Provider: 07/05/20 17:27 History of Present Illness HPI narrative: Patient is a 40-year-old female who presents ER with flank pain as well as burning urination. Ongoing for 3 days. No fevers but has felt warm. No shaking chills. Reports mild nausea but no vomiting. No chest pain or shortness of breath. Has history of pyelonephritis in the past and this feels similar. Related Data Home Medications Medication Instructions Recorded Confirmed metformin 1,000 mg PO BID 02/26/20 03/17/20 Allergies Allergy/AdvReac Type Severity Reaction Status Date / Time No Known Allergies Allergy Verified 02/26/20 11:31 Review of Systems Review of Systems: All systems reviewed & are unremarkable except as noted in HPI and below Constitutional: Constitutional: Denies chills, Reports fatigue and Reports fever(s) ENT: Denies nasal congestion and Denies sore throat Cardiovascular: Cardiovascular: Denies chest pain and Denies radiating jaw, neck or arm pain Gastrointestinal: Gastrointestinal: Reports abdominal pain, Reports nausea and Denies vomiting Genitourinary: Genitourinary: Denies hematuria, Reports nocturia, Reports dysuria and Reports flank pain PMFSH Past Medical History Medical History (Updated 07/05/20 @ 19:11 by Trace Silverio MD) COVID-19 (~02/26/20) Hepatic steatosis Type 2 diabetes mellitus Surgical History Surgical History (Updated 03/17/20 @ 13:59 by Ashlee Suarez PA-C) History of cholecystectomy Family History Family History Mother Diabetes mellitus Social History Social History (Updated 03/17/20 @ 23:56 by Ashlee Suarez PA-C) Social History: Surrogate decision maker: Len Maradiaga, friend. Code status: Full code. Smoking status: Never smoker Alcohol intake: never Substance use: never Substance use type: does not use Additional living arrangements comments: Lives in [place] with family. Gender identity (if verbalized by the patient): Female Spiritual care concerns: No Exam Narrative: Exam Narrative: GENERAL: Well-appearing, well-nourished, and in no acute distress. HEAD: Normocephalic, atraumatic. CHEST: Clear to auscultation. No respiratory distress. HEART: Tachycardic and regular. Normal peripheral pulses. ABDOMEN: Soft, nontender, nondistended, no CVA tenderness. EXTREMITIES: Normal range of motion. No edema. SKIN: Warm, dry, no rash. NEURO: Alert and oriented x3. PSYCH: Normal mood and affect. Course Course Emergency Course: Informed of results. Discharge home. Vital Signs Vital signs: Vital Signs Pulse Rate 105 H 07/05/20 17:34 Respiratory Rate 9 L 07/05/20 17:34 Pulse Oximetry 99 07/05/20 17:34 Temperature 97.3 F L 07/05/20 17:39 Pulse Rate 91 07/05/20 19:02 Respiratory Rate 20 07/05/20 19:02 Blood Pressure 123/78 07/05/20 18:47 Pulse Oximetry 98 07/05/20 19:02 Medical Decision Making Vital Signs Vital Signs: Vital Signs Pulse Rate 105 H 07/05/20 17:34 Respiratory Rate 9 L 07/05/20 17:34 Pulse Oximetry 99 07/05/20 17:34 Temperature 97.3 F L 07/05/20 17:39 Pulse Rate 91 07/05/20 19:02 Respiratory Rate 20 07/05/20 19:02 Blood Pressure 123/78 07/05/20 18:47 Pulse Oximetry 98 07/05/20 19:02 Lab Data Result diagrams: 07/05/20 17:35 07/05/20 17:35 Labs: Lab Results 07/05/20 07/05/20 07/05/20 Range/Units 17:35 17:35 17:35 WBC 8.5 (4.5-10.0) K/mm3 RBC 4.96 (4.2-5.4) M/mm3 Hgb 15.2 H D (12.0-15.0) g/dL Hct 43.1 (37.0-47.0) % MCV 86.9 (80-100) fl MCH 30.6 (26-34) pg MCHC 35.3 (32-36) g/dl RDW 11.5 (11.5-14.5) % Plt Count 307 (150-375) k/mm3 MPV 9.3 (7.4-10.4) fl Immature Gran % (Auto) 0.4 (0-0.5) % Neut %
== END 2020-07-05 19:18 | disposition home or self-care (01) ==
PROVIDERS: Emergency Provider Emergency Medicine
DX: N39.0 Urinary tract infection, site not specified (principal); E11.9 Type 2 diabetes mellitus without complications; Z79.84 Long term (current) use of oral hypoglycemic drugs; Z86.19 Personal history of other infectious and parasitic diseases
CPT/HCPCS: 36415; 80048; 81001; 81025; 85025; 87077; 87086; 87088; 87186; 96374; 96375; 99284; J2270; J2405

== ENCOUNTER 2020-12-23 09:03 | Emergency (ER) | payer OTHER, SELFPAY ==
--- NOTE | ~2020-12-23 | CT_ITS ---
EXAMINATION: CT abdomen pelvis w con EXAM DATE: 12/23/2020 11:58 INDICATION: Left-sided abdominal pain, fever. Nausea. TECHNIQUE: Spiral CT of the abdomen and pelvis was performed following intravenous injection of 100 m L Omnipaque 350. Axial, coronal and sagittal images of the abdomen and pelvis were reviewed. The do se-length product (DLP) for this examination was 369.24 mGy-cm. The exposure was tailored according to patient size (auto mA exposure control), and iterative reconstruction (ASIR) was used as additiona l dose reduction technique. Comparison is made to prior examination from 03/17/2020. FINDINGS: There is hepatic steatosis without suspicious focal lesion identified. Spleen, adrenal glan ds, pancreas are unremarkable. There are cholecystectomy clips. Development of small region of ill-defined left renal cortical midpole enhancement, differential diag nosis including infection, infarction, cancer. Please correlate with urinalysis for possible pyelonep hritis and consider one-month follow-up abdominal MRI examination without and with contrast. There ar e regions of bilateral renal cortical scarring, from prior infections or infarctions. No hydronephros is. There is IUD which appears to be centrally located within the endometrium, expected position. M ild diffuse bladder wall thickening, could be acute and/or chronic cystitis. There is no retroperito lori or pelvic lymphadenopathy. There is mild scattered arteriosclerotic disease. The appendix is normal. The stomach and small bowel are unremarkable. There is moderate amount of c olonic stool. No free intraperitoneal gas. The heart is normal in size. There are no pericardial or pleural effusions. The lung bases are unremarkable. There are no osteoblastic or osteolytic les ions identified. IMPRESSION: 1. Small region left renal cortical heterogeneous enhancement suspicious for pyelonephritis. Less li lila infarction or cancer. Bladder wall thickening. Correlate with urinalysis. Consider follow-up MRI in one month. 2. Regions of bilateral renal cortical scarring, probably prior episodes of infection or infarction. 3. Hepatic steatosis. Reviewed, dictated and finalized at location A. IMPRESSION: 1. Small region left renal cortical heterogeneous enhancement suspicious for p yelonephritis. Less likely infarction or cancer. Bladder wall thickening. Corre late with urinalysis. Consider follow-up MRI in one month. 2. Regions of bilateral renal cortical scarring, probably prior episodes of in fection or infarction. 3. Hepatic steatosis.
[2020-12-23 09:16] VITALS: BP 128/88; PULSE 94; RESP 18; TEMP 37.7; O2SAT 98
[2020-12-23] MEDS: SODIUM CHLORIDE 0.9% IV 1,000 ML 999 ML (09:35)
[2020-12-23 09:52] LABS: Basophils Percent Auto 0.2 % (0.2-1.2); Eosinophils Absolute Auto 0.1 K/mm3 (0-0.3); Eosinophils Percent Auto 0.5 % (0-4.4); Hematocrit 40.2 % (37.0-47.0); Hemoglobin 13.9 g/dL (12.0-15.0); Immature Granulocyte Absolute 0.04 K/mm3 (0.00-0.031); Immature Granulocyte Percent A 0.4 % (0-0.5); Lymphocytes Absolute Auto 1.48 K/mm3 (0.9-3.2); Lymphocytes Percent Auto 16.1 % (18.3-44.2); Mean Corpuscular HGB Conc 34.6 g/dl (32-36); Mean Corpuscular Hemoglobin 30.5 pg (26-34); Mean Corpuscular Volume 88.2 fl (80-100); Mean Platelet Volume 9.3 fl (7.4-10.4); Monocytes Absolute Auto 0.8 K/mm3 (0.1-0.6); Monocytes Percent Auto 8.3 % (2.6-8.5); Neutrophils Absolute Auto 6.8 K/mm3 (1.3-6.7); Neutrophils Percent Auto 74.5 % (45.5-73.1); Platelet Count Result 319 k/mm3 (150-375); Red Blood Count 4.56 M/mm3 (4.2-5.4); Red Cell Distribution Width 11.8 % (11.5-14.5); White Blood Count 9.2 K/mm3 (4.5-10.0)
[2020-12-23 10:09] LABS: Alanine Aminotransferase 31 U/L (4-35); Albumin Level 4.1 g/dL (3.5-5.1); Alkaline Phosphatase 85 U/L (38-126); Anion Gap 9 mmol/L (8-16); Aspartate Amino Transferase 29 U/L (14-36); Bilirubin,Total 0.5 mg/dL (0.2-1.3); Blood Urea Nitrogen 10 mg/dL (7-17); Calcium 9.2 mg/dL (8.4-10.2); Carbon Dioxide 25 mmol/L (22-30); Chloride 100 mmol/L (98-107); Estimated CRCL calculation 74 ml/min; Estimated Glomerular Filt Rate > 60; Glucose 316 mg/dL (65-105); Lipase 66 U/L (23-300); Potassium 3.8 mmol/L (3.4-5.0); Sodium 134 mmol/L (137-145)
[2020-12-23] MEDS: ONDANSETRON INJ 4 MG/2 ML VIAL IV PUSH (10:13)
[2020-12-23] MEDS: MORPHINE SULFATE (*CRX) 4 MG/ML INJ IV PUSH (10:13)
[2020-12-23 10:40] LABS: Add Urine Microscopic? YES; Appearance Urine Clear (Clear); Bilirubin Urine Negative (Negative); Blood Urine 1+ (Negative); Color Urine Yellow (Yellow); Glucose Urine UA 3+ mg/dL (Negative); Ketones Urine Trace mg/dL (Negative); Leukocyte Esterase Ur Negative LEU/UL (Negative); Nitrate Urine Negative (Negative); Protein Urine 2+ mg/dL (Negative); Specific Grav Ur 1.023 (1.001-1.035); Squamous Epithelial Cell Urine Many /hpf (Few); Urobilinogen Urine Negative mg/dL (<2.0)
--- NOTE | 2020-12-23 10:47 | ED.ABDPAIN ---
HPI - Abdominal Pain General Chief Complaint: Urogenital-Female Stated Complaint: upper abdominal pain radiating to back Time Seen by Provider: 12/23/20 09:09 History of Present Illness HPI narrative: Patient is a 40-year-old female who presents ER with upper abdominal pain. Reports last week she began having burning urination and then over the last day she began having pain in her left upper quadrant. She is still continues to have dysuria. Found to be febrile here. No chills. Denies nausea/vomiting/diarrhea. Feels similar to previous pyelonephritis she has had. Has taken no medications for this. Related Data Home Medications Medication Instructions Recorded Confirmed metformin 1,000 mg PO BID 02/26/20 03/17/20 Allergies Allergy/AdvReac Type Severity Reaction Status Date / Time No Known Allergies Allergy Verified 12/23/20 09:22 Review of Systems Review of Systems: All systems reviewed & are unremarkable except as noted in HPI and below Constitutional: Constitutional: Denies chills and Reports fever(s) Gastrointestinal: Gastrointestinal: Reports abdominal pain, Denies diarrhea, Denies nausea and Denies vomiting Genitourinary: Genitourinary: Denies hematuria, Reports dysuria and Denies flank pain PMFSH Past Medical History Medical History (Updated 12/23/20 @ 12:47 by Trace Silverio MD) COVID-19 (~02/26/20) Hepatic steatosis Type 2 diabetes mellitus Surgical History Surgical History (Updated 03/17/20 @ 13:59 by Ashlee Suarez PA-C) History of cholecystectomy Family History Family History Mother Diabetes mellitus Social History Social History (Updated 03/17/20 @ 23:56 by Ashlee Suarez PA-C) Social History: Surrogate decision maker: Len Maradiaga, friend. Code status: Full code. Smoking status: Never smoker Alcohol intake: never Substance use: never Substance use type: does not use Additional living arrangements comments: Lives in [place] with family. Gender identity (if verbalized by the patient): Female Spiritual care concerns: No Exam Narrative: Exam Narrative: GENERAL: Well-appearing, well-nourished, and in no acute distress. HEAD: Normocephalic, atraumatic. ENT: Mucous membranes moist. CHEST: Clear to auscultation. No respiratory distress. HEART: Regular rate and rhythm. Normal peripheral pulses. ABDOMEN: Soft, mild LUQ discomfort w/o guarding, nondistended. No CVA tenderness. EXTREMITIES: Normal range of motion. No edema. SKIN: Warm, dry, no rash. NEURO: Alert and oriented x3. PSYCH: Normal mood and affect. Course Course Emergency Course: Patient informed of results. Ceftriaxone here. D/c home with abx. Vital Signs Vital signs: Vital Signs Temperature 100 F H 12/23/20 09:16 Pulse Rate 94 12/23/20 09:16 Respiratory Rate 18 12/23/20 09:16 Blood Pressure 128/88 12/23/20 09:16 Pulse Oximetry 98 12/23/20 09:16 Temperature 98.6 F 12/23/20 12:27 Pulse Rate 81 12/23/20 12:27 Respiratory Rate 21 H 12/23/20 12:27 Blood Pressure 119/78 12/23/20 12:27 Pulse Oximetry 99 12/23/20 12:27 MDM - Abdominal Pain Lab Data Result diagrams: 12/23/20 09:46 12/23/20 09:46 Labs: Lab Results 12/23/20 12/23/20 12/23/20 Range/Units 09:46 09:46 10:13 WBC 9.2 (4.5-10.0) K/mm3 RBC 4.56 (4.2-5.4) M/mm3 Hgb 13.9 (12.0-15.0) g/dL Hct 40.2 (37.0-47.0) % MCV 88.2 (80-100) fl MCH 30.5 (26-34) pg MCHC 34.6 (32-36) g/dl RDW 11.8 (11.5-14.5) % Plt Count 319 (150-375) k/mm3 MPV 9.3 (7.4-10.4) fl Immature Gran % (Auto) 0.4 (0-0.5) % Neut % (Auto) 74.5 H (45.5-73.1) % Lymph % (Auto) 16.1 L (18.3-44.2) % Bowman % (Auto) 8.3 (2.6-8.5) % Eos % (Auto) 0.5 (0-4.4) % Baso % (Auto) 0.2 (0.2-1.2) % Lymph # (Auto) 1.48 (0.9-3.2) K/mm3 Bowman # (Auto) 0.8 H
[2020-12-23 11:22] VITALS: BP 118/69; PULSE 87; RESP 19; O2SAT 98
[2020-12-23 12:27] VITALS: BP 119/78; PULSE 81; RESP 21; TEMP 37; O2SAT 99
== END 2020-12-23 13:07 | disposition home or self-care (01) ==
PROVIDERS: Emergency Provider Emergency Medicine
DX: N12 Tubulo-interstitial nephritis, not specified as acute or chronic (principal); Z86.16 Personal history of COVID-19; E11.9 Type 2 diabetes mellitus without complications; K76.0 Fatty (change of) liver, not elsewhere classified; Z79.84 Long term (current) use of oral hypoglycemic drugs
CPT/HCPCS: 36415; 74177; 80053; 81001; 81025; 83690; 85025; 87086; 87088; 96361; 96365; 96375; 99284; J0696; J2270; J2405; J7030; Q9967

== ENCOUNTER 2021-02-05 16:21 | Inpatient (IN) | payer OTHER, SELFPAY ==
--- NOTE | ~2021-02-05 | XR_ITS ---
EXAMINATION: XR chest 2V DATE: 02/05/2021 22:30 INDICATION: Chest pain TECHNIQUE: AP and lateral views of the chest are obtained. COMPARISON: 03/19/2020 FINDINGS: The lungs are free of acute opacities. There is no pleural effusion or pneumothorax. The ca rdiomediastinal silhouette is normal. The visualized bones and soft tissues are unremarkable. IMPRESSION: 1. No acute cardiopulmonary abnormality. Reviewed, dictated and finalized at location A.
--- NOTE | ~2021-02-05 | CT_ITS ---
EXAMINATION: CT abdomen pelvis wo con DATE: 02/05/2021 21:19 INDICATION: Bilateral flank pain TECHNIQUE: Computed tomography (CT) of the abdomen and pelvis was performed without intravenous contr ast. The dose-length product (DLP) was 196.47 mGy-cm. Automated exposure control and iterative recons truction technique were employed. COMPARISON: 12/23/2020 FINDINGS: The lung bases are clear. The heart size is normal. The gallbladder is surgically absent. T he liver, spleen, pancreas, and adrenal glands are normal. There are areas of cortical scarring in th e kidneys. No stones are identified in the kidneys, ureters, or bladder. There is no hydronephrosis o r hydroureter. No pathologically enlarged abdominal or pelvic lymph nodes are identified. There is no free intraperitoneal gas or evidence of bowel obstruction. An IUD is in expected position. IMPRESSION: 1. No CT correlate for the patient's symptoms. Reviewed, dictated and finalized at location A.
--- NOTE | ~2021-02-05 | CT_ITS ---
EXAMINATION: CT chest abdomen pelvis w con DATE: 02/06/2021 08:06 CDT INDICATION: Elevated d-dimer. Chest pain. Flank pain. TECHNIQUE: Computed tomography (CT) of the chest, abdomen, and pelvis was performed with 100 cc Omnip aque 350 intravenous contrast. The dose-length product was 621.62 mGy-cm. Automated exposure control and iterative reconstruction technique were employed. COMPARISON: CT dated 02/05/2021 FINDINGS: CHEST CT: Heart size normal. No thoracic lymphadenopathy. No significant pleural or pericardial effusion. No en dobronchial lesions. No focal airspace consolidation. No evidence for aortic aneurysm or dissection. Heart size is normal. ABDOMEN/PELVIS CT: Status post cholecystectomy. Fatty infiltration of the liver. The spleen, pancreas, adrenal glands an d right kidney are unremarkable. There is heterogeneous enhancement posterior aspect of the left kidn ey, consistent with pyelonephritis with possible developing abscess measuring up to 1.8 cm. Mild left perinephric stranding. No significant hydronephrosis. Nonobstructive bowel gas pattern. There is an IUD present. No abnormal pelvic masses or fluid collections. IMPRESSION: 1. Heterogeneous hypoenhancement posterior aspect of the left kidney, consistent with pyelonephritis, with possible developing abscess measuring up to 1.8 cm. Reviewed, dictated and finalized at location A. IMPRESSION: 1. Heterogeneous hypoenhancement posterior aspect of the left kidney, consisten t with pyelonephritis, with possible developing abscess measuring up to 1.8 cm.
--- NOTE | ~2021-02-05 | US_ITS ---
EXAMINATION: US venous doppler LE EXAM DATE: 02/06/2021 15:54 INDICATION: SARAH lower leg cramping, pain. TECHNIQUE: Multiple grayscale, color flow and Doppler images of the lower extremity deep venous syste ms bilaterally were obtained and reviewed. There is no prior study for comparison. FINDINGS: Right side: The right common femoral, femoral and profunda veins demonstrate normal color flow, respi ratory variation, augmentation and compressibility. Compressibility, color flow confirmed within the right popliteal, posterior tibial, peroneal, and greater saphenous veins. Left side: The left common femoral, femoral and profunda veins demonstrate normal color flow, respira tory variation, augmentation and compressibility. Compressibility, color flow confirmed within the l eft popliteal, posterior tibial, peroneal, and greater saphenous veins. IMPRESSION: No lower extremity deep venous thrombosis bilaterally. Reviewed, dictated and finalized at location B.
--- NOTE | 2021-02-05 17:10 | PC.NURSE ---
patient called for triage with no answer at this time.
[2021-02-05 17:13] VITALS: BP 133/71; PULSE 99; RESP 18; TEMP 37.2; O2SAT 99
[2021-02-05 17:24] LABS: Basophils Percent Auto 0.3 % (0.2-1.2); Eosinophils Absolute Auto 0.1 K/mm3 (0-0.3); Eosinophils Percent Auto 0.5 % (0-4.4); Hematocrit 37.7 % (37.0-47.0); Hemoglobin 13.1 g/dL (12.0-15.0); Immature Granulocyte Absolute 0.06 K/mm3 (0.00-0.031); Immature Granulocyte Percent A 0.6 % (0-0.5); Lymphocytes Absolute Auto 2.33 K/mm3 (0.9-3.2); Lymphocytes Percent Auto 24.7 % (18.3-44.2); Mean Corpuscular HGB Conc 34.7 g/dl (32-36); Mean Corpuscular Hemoglobin 30.8 pg (26-34); Mean Corpuscular Volume 88.7 fl (80-100); Mean Platelet Volume 9.6 fl (7.4-10.4); Monocytes Absolute Auto 0.9 K/mm3 (0.1-0.6); Monocytes Percent Auto 9.7 % (2.6-8.5); Neutrophils Percent Auto 64.2 % (45.5-73.1); Platelet Count Result 311 k/mm3 (150-375); Red Blood Count 4.25 M/mm3 (4.2-5.4); Red Cell Distribution Width 12.2 % (11.5-14.5); White Blood Count 9.4 K/mm3 (4.5-10.0)
[2021-02-05 17:36] LABS: Alanine Aminotransferase 53 U/L (4-35); Albumin Level 4.2 g/dL (3.5-5.1); Alkaline Phosphatase 95 U/L (38-126); Anion Gap 10 mmol/L (8-16); Aspartate Amino Transferase 31 U/L (14-36); Bilirubin,Total 0.3 mg/dL (0.2-1.3); Blood Urea Nitrogen 15 mg/dL (7-17); Calcium 9.6 mg/dL (8.4-10.2); Carbon Dioxide 23 mmol/L (22-30); Chloride 99 mmol/L (98-107); Estimated CRCL calculation 68 ml/min; Estimated Glomerular Filt Rate > 60; Glucose 350 mg/dL (65-110); Lipase 381 U/L (23-300); Potassium 4.2 mmol/L (3.4-5.0); Sodium 132 mmol/L (137-145)
[2021-02-05 17:44] LABS: Add Urine Microscopic? YES; Appearance Urine Clear (Clear); Bacteria Urine Trace /hpf; Bilirubin Urine Negative (Negative); Blood Urine 1+ (Negative); Color Urine Straw (Yellow); Glucose Urine UA 3+ mg/dL (Negative); Ketones Urine Negative (Negative); Leukocyte Esterase Ur Negative LEU/UL (Negative); Nitrate Urine Negative (Negative); Protein Urine 2+ mg/dL (Negative); RBC Urine 0-2 /hpf (0-2); Specific Grav Ur 1.022 (1.001-1.035); Squamous Epithelial Cell Urine Occasional /hpf (Few); Urobilinogen Urine Negative mg/dL (<2.0); WBC Urine 0-3 /hpf
[2021-02-05 20:58] VITALS: BP 135/84; PULSE 87; RESP 18; TEMP 37.5; O2SAT 100
--- NOTE | 2021-02-05 21:00 | ED.ABDPAIN ---
HPI - Abdominal Pain General Chief Complaint: Urogenital-Female Stated Complaint: flank pain Time Seen by Provider: 02/05/21 20:55 Source: patient Mode of arrival: ambulatory Limitations: no limitations History of Present Illness HPI narrative: Patient is a 40-year-old female with a history of diabetes, recurrent episodes of pyelonephritis who presents for evaluation of back pain and abdominal pain. Patient reports abdominal pain has been constant over the past 72 hours. Initially occurred on Friday, states that it has been sharp in nature with radiation to the flank. No associated dysuria or hematuria. She has had nausea with emesis over the past two days. Today she has been unable to tolerate oral intake aside from a small amount of water. She reports subjective fever and diaphoresis. She currently reports pain with inspiration in the left side of her chest. She denies current shortness of breath. No history of Covid. No rhinorrhea, congestion or sore throat. Denies recent sick contacts. Patient denies diarrhea. States in the past she has had this occur before, and states she was diagnosed with a kidney infection. She currently denies any dysuria or hematuria. No history of kidney stones. Patient does not smoke. Related Data Home Medications Medication Instructions Recorded Confirmed metformin 1,000 mg PO BID 02/26/20 03/17/20 Allergies Allergy/AdvReac Type Severity Reaction Status Date / Time No Known Allergies Allergy Verified 12/23/20 09:22 Review of Systems Review of Systems: Narrative: CONSTITUTIONAL: Reports subjective fever and chills EYES: Denies visual changes, redness, or discharge. ENT: Denies rhinorrhea, congestion, sore throat, or otalgia. CARDIOVASCULAR: Reports left sided chest pain, denies palpitations RESPIRATORY: Denies cough or dyspnea. GASTROINTESTINAL: Reports lower abdominal pain, nausea and vomiting GENITOURINARY: Denies dysuria or hematuria. SKIN: Denies rash or itching. MUSCULOSKELETAL: Reports left-sided back pain, denies other joint pain, or myalgia. NEUROLOGIC: Denies headache, numbness, or weakness. [facility] Past Medical History Medical History (Updated 02/06/21 @ 02:21 by Meche Batista MD) COVID-19 (~02/26/20) Hepatic steatosis Type 2 diabetes mellitus Surgical History Surgical History History of cholecystectomy Family History Family History Mother Diabetes mellitus Social History Social History Social History: Surrogate decision maker: Len Maradiaga, friend. Code status: Full code. Smoking status: Never smoker Alcohol intake: never Substance use: never Substance use type: does not use Additional living arrangements comments: Lives in [place] with family. Gender identity (if verbalized by the patient): Female Spiritual care concerns: No Exam Narrative: Exam Narrative: GENERAL: Awake, alert, conversant HEAD: Normocephalic, atraumatic. EYES: PERRLA and EOMI. ENT: Nares clear, no rhinorrhea or epistaxis. Mucous membranes moist. NECK: Supple. CHEST: No respiratory distress, breathing even and non labored HEART: Regular rate, sinus rhythm ABDOMEN:Non distended, tender in the epigastric region, left upper quadrant tenderness, left flank tenderness no guarding on exam EXTREMITIES: Normal range of motion. No edema. SKIN: Warm, dry, no rash. NEURO:No focal deficits. Alert and oriented x3 Course Vital Signs Vital signs: Vital Signs Temperature 37.2 C 02/05/21 17:13 Pulse Rate 99 02/05/21 17:13 Respiratory Rate 18 02/05/21 17:13 Blood Pressure 133/71 02/05/21 17:13 Pulse Oximetry 99 02/05/21 17:13 Temperature 37.2 C 02/05/21 23:06 Pulse Rate 75 02/06/21 01:17 Respiratory Rate 14 02/06/21 01:17 Blood Pressure 101/61 02/06/21 01:1
[2021-02-05 22:15] VITALS: BP 103/66; PULSE 84; RESP 16; O2SAT 99
--- NOTE | 2021-02-05 22:15 | ECG_ITS ---
Measurements Intervals [place] Rate: 87 P: 31 FL: 150 QRS: 0 QRSD: 86 T: -3 QT: 364 QTc: 438 Interpretive Statements SINUS RHYTHM BORDERLINE T WAVE ABNORMALITY- INFERIOR LEADS BORDERLINE ECG Electronically Signed On 02-06-2021 6:32:42 CDT by Bryon Noriega D.O.
[2021-02-05] MEDS: SODIUM CHLORIDE 0.9% IV 1,000 ML 999 ML IV CONT (22:47)
[2021-02-05] MEDS: MORPHINE SULFATE (*CRX) 4 MG/ML INJ IV PUSH (22:47)
[2021-02-05] MEDS: FAMOTIDINE 20 MG/2 ML VIAL IV PUSH (22:48)
[2021-02-05] MEDS: METOCLOPRAMIDE HCL INJ 10 MG/2 ML VIAL IV PUSH (22:48)
[2021-02-05 23:04] LABS: D Dimer 0.57 ug/mL (<0.48)
[2021-02-05 23:06] VITALS: BP 115/78; PULSE 88; PULSE 89; RESP 18; RESP 20; TEMP 37.2; O2SAT 98; O2SAT 99
[2021-02-05 23:14] LABS: Troponin I < 0.012 ng/mL (0.000-0.034)
[2021-02-06 01:17] VITALS: BP 101/61; PULSE 75; RESP 14; O2SAT 98
[2021-02-06 04:00] VITALS: BP 106/69; PULSE 74; RESP 18; TEMP 36.7; O2SAT 99; BMI 28.9
--- NOTE | 2021-02-06 04:29 | ADMGEN ---
This patient, Tri Patricia, was admitted to [facility] Surg Room 309-01. Patient/family oriented to hospital policies and general routines including ID bracelet, bed and alarms, visiting hours, pain management, procedures, bathroom and other care routines, personal items, smoking policy, room service/diet, and visiting hours. Information on how to activate the Rapid Response Team has been discussed. Patient/Family are encouraged to report perceived risks to care and to ask questions if they do not understand what they are told or what they should do.
--- NOTE | 2021-02-06 04:31 | PM.IMHP ---
H&P: HPI History of Present Illness Date/Time: 02/06/21 04:31 Chief Complaint: FLANK PAIN Narrative: THIS IS A 40-YEAR-OLD FEMALE WITH PAST MEDICAL HISTORY SIGNIFICANT FOR RECURRENT URINARY TRACT INFECTION, TYPE 2 DIABETES MELLITUS. PATIENT PRESENTED TO THE EMERGENCY ROOM DUE TO FLANK PAIN ON THE LEFT SIDE WITH SOME NAUSEA AND VOMITING , PAIN IS 10 OUT 10 IN INTENSITY IS NON RADIATING IT IS LOCALIZED TO THE LEFT FLANK AND BACK ,FEVERS, CHILLS FOR THE LAST 3 DAYS OR SO. SHE DENIES ANY PAIN OR BURNING WITH URINATION. PRELIMINARY WORKUP WAS SIGNIFICANT FOR LEFT KIDNEY ABSCESS. Review of Systems Review of Systems: Narrative: LEFT FLANK PAIN FEVERS CHILLS NAUSEA AND VOMITING Constitutional: Constitutional: Reports chills, Reports fever(s) and Reports malaise Eyes: Eyes: Denies change in vision ENT: Denies dysphagia, Denies nasal congestion, Denies nasal discharge, Denies nasal obstruction and Denies odynophagia Cardiovascular: Cardiovascular: Denies chest pain, Denies chest pain at rest, Denies lightheadedness, Denies palpitations, Denies dyspnea and Denies dyspnea on exertion Respiratory: Respiratory: Denies cough and Denies dyspnea Gastrointestinal: Gastrointestinal: Reports nausea and Reports vomiting Musculoskeletal: Musculoskeletal: Reports no additional musculoskeletal complaints Integumentary/Breasts: Skin/Breast: Reports system reviewed and no additional complaints, except as docu Neurologic: Reports system reviewed and no additional complaints, except as documented Psychiatric: Psychiatric: Reports no additional psychiatric complaints Endocrine: Endocrine: Reports no additional endocrine complaints Hematologic/Lymphatic: Hematologic/Lymphatic: Reports no additional hematologic/lymphatic complaints Allergic/Immunologic: Allergic/Immunologic: Reports no additional allergic/immunologic complaints [facility] Past Medical History Medical History (Updated 02/06/21 @ 04:41 by Johan Estrada MD) COVID-19 (~02/26/20) Hepatic steatosis Type 2 diabetes mellitus Surgical History Surgical History History of cholecystectomy Family History Family History Mother Diabetes mellitus Social History Social History Social History: Surrogate decision maker: Len Maradiaga, friend. Code status: Full code. Smoking status: Never smoker Alcohol intake: never Substance use: never Substance use type: does not use Additional living arrangements comments: Lives in [place] with family. Gender identity (if verbalized by the patient): Female Spiritual care concerns: No Meds Home Medications and Allergies Home Medications Medication Instructions Recorded Confirmed Type metformin 1,000 mg PO BID 02/26/20 03/17/20 History amoxicillin-pot clavulanate 1 tablet PO Q12H #6 tablet 03/25/20 Rx [Augmentin] doxycycline hyclate 100 mg PO Q12HR #8 tablet 03/25/20 Rx cephalexin [Keflex] 500 mg PO Q12H #14 cap 07/05/20 Rx ondansetron 4 mg PO Q6H PRN #10 tablet 07/05/20 Rx ciprofloxacin HCl 500 mg PO Q12H #20 tablet 12/23/20 Rx hydrocodone-acetaminophen 1 tablet PO Q6H PRN #10 tablet 12/23/20 Rx ondansetron 4 mg PO Q6H PRN #10 tablet 12/23/20 Rx Allergies Allergy/AdvReac Type Severity Reaction Status Date / Time No Known Allergies Allergy Verified 12/23/20 09:22 Vital Signs Vital Signs - 24 hr 02/05/21 17:13 02/05/21 20:58 02/05/21 22:15 Temperature 98.9 F 99.5 F Pulse Rate 99 87 84 Respiratory Rate 18 18 16 Blood Pressure 133/71 135/84 103/66 Pulse Oximetry 99 100 99 02/05/21 23:06 02/06/21 01:17 Temperature 98.9 F Pulse Rate 88 75 Respiratory Rate 18 14 Blood Pressure 115/78 101/61 Pulse Oximetry 99 98 Exam Narrative: Exam Narrative: LAYING IN NITISH Const: General: comfortable, no acute dist
[2021-02-06] MEDS: MORPHINE SULFATE (*CRX) 4 MG/ML INJ IV PUSH (04:39)
[2021-02-06] MEDS: SODIUM CHLORIDE 0.9% IV 1,000 ML 125 ML IV CONT (04:39)
[2021-02-06 04:55] VITALS: PULSE 74; RESP 18; O2SAT 99
[2021-02-06 08:39] LABS: Glucose Point of Care 212 mg/dl (65-105)
[2021-02-06] MEDS: INSULIN ASPART (*BKC) 100 UNITS/ML SUB-Q ×3 (09:02→17:48)
[2021-02-06] MEDS: HYDROcodone/acetaminophen (*CRX) 5-325 MG TABLET 1 TAB PO ×3 (09:42→21:25)
[2021-02-06 11:03] LABS: Basophils Percent Auto 0.4 % (0.2-1.2); Eosinophils Absolute Auto 0.1 K/mm3 (0-0.3); Eosinophils Percent Auto 1.2 % (0-4.4); Hematocrit 35.2 % (37.0-47.0); Hemoglobin 12.1 g/dL (12.0-15.0); Immature Granulocyte Absolute 0.05 K/mm3 (0.00-0.031); Immature Granulocyte Percent A 0.5 % (0-0.5); Lymphocytes Absolute Auto 1.83 K/mm3 (0.9-3.2); Lymphocytes Percent Auto 19.9 % (18.3-44.2); Mean Corpuscular HGB Conc 34.4 g/dl (32-36); Mean Corpuscular Volume 90.3 fl (80-100); Mean Platelet Volume 9.3 fl (7.4-10.4); Monocytes Absolute Auto 0.9 K/mm3 (0.1-0.6); Monocytes Percent Auto 10.1 % (2.6-8.5); Neutrophils Absolute Auto 6.2 K/mm3 (1.3-6.7); Neutrophils Percent Auto 67.9 % (45.5-73.1); Platelet Count Result 303 k/mm3 (150-375); Red Cell Distribution Width 12.2 % (11.5-14.5); White Blood Count 9.2 K/mm3 (4.5-10.0)
[2021-02-06 11:30] LABS: Alanine Aminotransferase 46 U/L (4-35); Albumin Level 3.5 g/dL (3.5-5.1); Alkaline Phosphatase 92 U/L (38-126); Anion Gap 11 mmol/L (8-16); Aspartate Amino Transferase 33 U/L (14-36); Bilirubin,Total 0.6 mg/dL (0.2-1.3); Blood Urea Nitrogen 12 mg/dL (7-17); Calcium 8.6 mg/dL (8.4-10.2); Carbon Dioxide 24 mmol/L (22-30); Chloride 99 mmol/L (98-107); Estimated CRCL calculation 65 ml/min; Estimated Glomerular Filt Rate > 60; Glucose 306 mg/dL (65-110); Lipase 131 U/L (23-300); Potassium 4.1 mmol/L (3.4-5.0); Sodium 134 mmol/L (137-145)
[2021-02-06 12:09] LABS: Glucose Point of Care 328 mg/dl (65-105)
--- NOTE | 2021-02-06 12:49 | WPDURCON ---
Assessment and Plan Assessment and plan (1) Acute flank pain: Code(s): R10.9 - Unspecified abdominal pain Status: Acute (2) Nausea and vomiting: Code(s): R11.2 - Nausea with vomiting, unspecified Status: Acute (3) Abscess of left kidney: Code(s): N15.1 - Renal and perinephric abscess Status: Acute Assessment and Plan: Discussed plan with Dr. Tang. Since she has had recurrent, chronic pyelonphritis with a newly developed possible abscess, we feel it is best to consult ID, as she has previously been treated with culture appropriate antibiotics, and there doesn't appear to be any obstruction causing recurrent infection on CT. Continue IV antibiotics, if she would become febrile or her WBC would start to rise, Dr. Tang recommends sending her to IR for drainage of the abscess, otherwise IV therapy for now is appropriate. We will continue to follow her. No surgical intervention planned at this time. (4) Perinephritis: Code(s): N15.9 - Renal tubulo-interstitial disease, unspecified Status: Acute Urology Consult Note HPI Date Seen: 02/06/21 Requesting Physician: EMILY Lima Primary Care Provider: Kamilah Ferrer, PA Consult Narrative Narrative: Tri Patricia is a 40 year old female who presented to the ER with a 4th episode of acute right flank pain with radiation of pain to the RLQ. This as accompanied by nausea and vomiting. She denies dysuria, hematuria,fevers, frequency or urgency to urinate. She first had these symptoms when she arrived at the ER on 03/17/2020 and had sepsis at that time with growth of E-Coli (ESBL) on her blood and urine cultures, as well as a CT that time that showed perinephric stranding indicating pyelonephritis. She was treated with IV antibiotics and discharged home. Her symptoms then returned causing a second ER visit on 07/05/2020 when her culture again grew E-Coli (ESBL), she was treated and discharged home. She came a 3rd time to the ER on 12/23/2020 with the same symptoms but her culture for urine at that time was negative, although her repeat CT scan in 12/2020 showed perinephric stranding indicating recurrent pyelonephritis. Her symptoms this time started again on Friday. Her urine does look positive for infection, urine and blood cultures are pending at this time. Her CT scan from yesterday shows not only perinephric stranding but also a 1.8cm abscess developing in her right kidney. She had a WBC of 9.4 on admission and it is now 9.2, creatinine is normal at 0.90. She denies any previous history of recurrent UTI prior to this past year. She is afebrile at this time. She is currently on IV Zosyn. Review of Systems Cardiovascular: Cardiovascular: Denies chest pain Respiratory: Respiratory: Reports no additional respiratory complaints Gastrointestinal: Gastrointestinal: Reports abdominal pain, Reports nausea and Reports vomiting Genitourinary: Genitourinary: Denies hematuria, Denies dysuria, Reports flank pain and Denies urinary urgency [facility] Past Medical History Medical History COVID-19 (~02/26/20) Hepatic steatosis Type 2 diabetes mellitus Surgical History Surgical History History of cholecystectomy Family History Family History Mother Diabetes mellitus Social History Social History Social History: Surrogate decision maker: Len Maradiaga, friend. Code status: Full code. Smoking status: Never smoker Alcohol intake: never Substance use: never Substance use type: does not use Additional living arrangements comments: Lives in [place] with family. Gender identity (if verbalized by the patient): Female Spiritual care concerns: No Meds Home Medications and Allergies
[2021-02-06] MEDS: SODIUM CHLORIDE 0.9% IV 1,000 ML 75 ML IV CONT (12:53)
[2021-02-06] MEDS: ONDANSETRON INJ 4 MG/2 ML VIAL IV PUSH (12:54)
[2021-02-06 14:00] VITALS: BP 106/67; PULSE 76; RESP 18; TEMP 36.4; O2SAT 98
--- NOTE | 2021-02-06 15:04 | PM.IMPN ---
Progress Note: A&P Assessment and Plan (1) Abscess of left kidney: Code(s): N15.1 - Renal and perinephric abscess Status: Acute Assessment and Plan: Patient with previous history of pyelonephritis presents with left flank pain; CT demonstrates findings consistent with left pyelonephritis and possible developing abscess measuring up to 1.8 cm. Appreciate urology recommendations regarding the possible abscess. Urology has recommended infectious disease consultation and consider IR drainage if patient would become febrile or WBC would rise. Continue empiric antibiotics with IV zosyn while awaiting infectious disease input. UA with protein and glucose did not reflex automatically to culture. Lab has specimen from last night still and able to run culture on original specimen. Ordered blood cultures although she has had 2 doses of antibiotics already and this may alter results. Continue supportive care with pain control and antiemetics as needed. (2) Nausea and vomiting: Code(s): R11.2 - Nausea with vomiting, unspecified Status: Acute Assessment and Plan: Suspect related to pyelonephritis. Continue supportive care as above. Slow down rate of IV fluids but continue IV hydration until she can tolerate more oral intake. (3) Type 2 diabetes mellitus: Qualifiers: Diabetes mellitus prison insulin use: without level vial sealer use Code(s): E11.9 - Type 2 diabetes mellitus without complications Status: Acute Assessment and Plan: Check A1c in AM. Blood sugars elevated. Metformin held today given her contrast exposure this morning. Blood sugars are elevated. Acute infection and holding her metformin likely contributing. Start low-dose Lantus this evening while her metformin is held and monitor accu-cheks closely. Cover with sliding scale insulin. Hypoglycemia protocol as needed. Subjective Date/time seen: 02/06/21 1500 Interval history: Ms. Patricia is a pleasant 40yo F admitted for pyelonephritis. She appears uncomfortable holding her left flank but rates her left flank pain 4/10 at present. She reports nausea this morning that resolved with anti-emetic medication. She denies vomiting however shortly after my encounter, RN has notified me of emesis x1. She denies shortness of breath but notes her left upper abdominal/flank discomfort is worse with a deep breath. She notes both her legs are crampy , sore , and tired without swelling. She denies dysuria or hematuria. Review of Systems Review of Systems: All systems reviewed & are unremarkable except as noted in HPI and below Exam Narrative: Exam Narrative: General: Female resting semi-recumbent in bed, uncomfortable-appearing holding her left upper abdomen/flank. HEENT: Normocephalic, EOMI, oral mucosa tacky. Cardiovascular: Rate and rhythm are regular. Respiratory: Lungs clear to auscultation bilaterally. Respirations even and non-labored. Tolerating room air. Abdomen: Soft, non-distended, bowel sounds present. Tenderness to palpation of left upper abdomen/flank. + L CVA tenderness. Extremities: Peripheral pulses intact. No edema, some pain to palpation SARAH lower legs reported. Neuro: Awake and alert; answering questions appropriately. No focal neurological deficits. Speech is clear. Objective Data Vital Signs Vital Signs: Last Vital Signs Temp 97.6 F 02/06/21 14:00 Pulse 76 02/06/21 14:00 Resp 18 02/06/21 14:00 BP 106/67 02/06/21 14:00 Pulse Ox 98 02/06/21 14:00 Intake/Output Intake/Output: Intake & Output 02/03/21 02/04/21 02/05/21 02/06/21 23:59 23:59 23:59 23:59 Intake Total 1000 1580 Balance 1000 1580 Meds/Results Medications: Active Medications Generic Name Dose Route Start Last Admin Trade Name Freq PRN Reason Stop Dose Admin Acetaminophe
[2021-02-06 17:08] LABS: Glucose Point of Care 285 mg/dl (65-105)
--- NOTE | 2021-02-06 18:50 | WPDINFPN2 ---
Progress Note: A&P Assessment and Plan (1) Perinephritis: Code(s): N15.9 - Renal tubulo-interstitial disease, unspecified Status: Acute Assessment and Plan: UTI REC PipTazo, adjust if urine grows a pathogen, drain fluid and send for culture if not markedly better in 2 days. Call if Qs, I will not follow unless new issues Subjective Date/time seen: 02/06/21 18:50 Objective Data Vital Signs Vital Signs: Vital Signs - 24 hr 02/05/21 20:58 02/05/21 22:15 02/05/21 23:06 Temperature 37.5 C 37.2 C Pulse Rate 87 84 88 Respiratory Rate 18 16 18 Blood Pressure 135/84 103/66 115/78 Pulse Oximetry 100 99 99 02/06/21 01:17 02/06/21 04:00 02/06/21 04:55 Temperature 36.7 C Pulse Rate 75 74 74 Respiratory Rate 14 18 18 Blood Pressure 101/61 106/69 Pulse Oximetry 98 99 99 02/06/21 14:00 Temperature 36.4 C Pulse Rate 76 Respiratory Rate 18 Blood Pressure 106/67 Pulse Oximetry 98 Intake/Output Intake/Output: Intake & Output 02/03/21 02/04/21 02/05/21 02/06/21 23:59 23:59 23:59 23:59 Intake Total 1000 1700 Balance 1000 1700 Meds/Results Medications: Active Medications Generic Name Dose Route Start Last Admin Trade Name Freq PRN Reason Stop Dose Admin Acetaminophen 650 mg 02/06/21 02:28 Acetaminophen 325 Mg Tablet PO Q4H PRN Mild Pain (1-3) or Fever Hydrocodone Bitart/Acetaminophen 1 tab 02/06/21 15:08 Hydrocodone/Acetaminophen (*Crx) 5-325 Mg Tablet PO Q4H PRN Pain Rated 4-6 Dextrose 12.5 gm 02/06/21 09:19 Dextrose 50% 25 Gm/50 Ml Syringe IV PUSH PRN PRN Hypoglycemia Protocol Glucagon 1 mg 02/06/21 09:19 Glucagon For Inj 1 Mg Vial IM PRN PRN Hypoglycemia Protocol Glucose 15 gm 02/06/21 09:19 Glucose Oral Gel 15 Gm Of Glucse In 37.5 Gm Tube PO PRN PRN Hypoglycemia Protocol Sodium Chloride 1,000 mls @ 75 mls/hr 02/06/21 02:30 02/06/21 12:53 Normal Saline Iv IV CONT 75 mls/hr .[id number] JANNETH Administration Piperacillin/Tazobactam/Dextrose 3.375 gm in 50 mls @ 100 mls/hr 02/06/21 08:00 02/06/21 14:41 Zosyn 3.375 Gm/D5w 50ml Pm IVPB 100 mls/hr Q6H JANNETH Administration Dextrose 1,000 mls @ 100 mls/hr 02/06/21 09:19 Dextrose 5% 1,000 Ml IVPB PRN PRN Hypoglycemia Protocol Insulin Aspart 3 - 6 units 02/06/21 12:00 02/06/21 17:48 Insulin Aspart (*Bkc) 100 Units/Ml SUB-Q 4 units TIDWM JANNETH Administration Protocol Insulin Glargine 10 units 02/06/21 21:00 Insulin Glargine (*Bkc) 100 Units/Ml SUB-Q HS JANNETH Morphine Sulfate 2 mg 02/06/21 09:20 Morphine Sulfate (*Crx) 4 Mg/Ml Inj IV PUSH Q4H PRN Pain Rated 7-10 Ondansetron HCl 4 mg 02/06/21 02:28 02/06/21 12:54 Ondansetron Inj 4 Mg/2 Ml Vial IV PUSH 4 mg Q4H PRN Administration Nausea Radiology Results: ITS Impressions Abdomen/Pelvis CT 02/05/21 21:21 IMPRESSION: 1. No CT correlate for the patient's symptoms. Chest X-Ray 02/05/21 22:32 IMPRESSION: 1. No acute cardiopulmonary abnormality. Chest/Abdomen/Pelvis CT 02/06/21 08:06 IMPRESSION: 1. Heterogeneous hypoenhancement posterior aspect of the left kidney, consistent with pyelonephritis, with possible developing abscess measuring up to 1.8 cm. Venous Doppler Study 02/06/21 15:55 IMPRESSION: No lower extremity deep venous thrombosis bilaterally. Labs Labs: Laboratory Results - last 24 hr 02/05/21 02/05/21 02/06/21 22:45 22:45 08:35 WBC RBC Hgb Hct MCV MCH MCHC RDW Plt Count MPV Immature Gran % (Auto) Neut % (Auto) Lymph % (Auto) [place] % (Auto) Eos % (Auto) Baso % (Auto) Lymph # (Auto) [place] # (Auto) Eos # (Auto) Baso # (Auto) Abs Immat Gran (auto) Absolute Neuts (auto) Absolute Nucleated RBC Nucleated RBC % D-Dimer 0.57 H Sodium Potassium Chloride
--- NOTE | 2021-02-06 19:56 | CONS_ITS ---
DATE OF CONSULTATION: 02/06/2021 REASON FOR CONSULTATION: UTI. HISTORY OF PRESENT ILLNESS: She has had several positive urine cultures in the last year that have been diagnosed as clinical urinary tract infection and ESBL has been isolated. Most recent urine culture was in December and was no growth at that time. She presented back to the emergency room and the hospital on the evening of , early on the morning of the with left-sided flank pain, nausea, and vomiting. She has been given piperacillin tazobactam, and consultation requested. She had subjective fever at home, not otherwise specified. She has had no voiding symptoms. ALLERGIES: NONE KNOWN. PRESENT MEDICATIONS: As above. HABITS: No tobacco. No alcohol. PAST MEDICAL HISTORY: Cholecystectomy, laparoscopic technique at least 10 years ago; type 2 diabetes mellitus; coronavirus infection 11 months ago. REVIEW OF SYSTEMS: Constitutional, , GI, respiratory, allergic, immunologic, otherwise negative. FAMILY HISTORY: Not pertinent to her present illness. SOCIAL HISTORY: Lives locally, . PHYSICAL EXAMINATION: GENERAL: Young female appears her actual age. No acute distress. VITAL SIGNS: Afebrile since arrival, 76, 18, 106/67. SKIN: Warm and dry. No rashes. EENT: Conjunctivae are normal. The oropharynx, oral mucosa normal. NECK: No meningismus. LUNGS: Clear to auscultation. BACK: Left CVAT. Also left flank tenderness. CARDIAC: Regular rate and rhythm. No murmurs or gallops. ABDOMEN: Mild tenderness, left upper quadrant. No guarding elsewhere. No tenderness. No masses. No organomegaly. EXTREMITIES: No edema. LABORATORY DATA: Urine and blood cultures obtained early this morning and no results as yet. White count 9.2, hemoglobin 12.1, platelets are 303. Sodium is 134, glucose 306. A1c last done on this computer system 03/17/2020 was 9.5%. AST normal, ALT minimally high at 46. Urinalysis, 0 to 2 red cells, 0 to 3 white cells. RADIOLOGY: CT of the abdomen and pelvis performed early this morning, left posterior kidney enhancement with 1.8 cm fluid collection. ASSESSMENT: 1. Fever, nausea, and vomiting, possible urinary tract infection with pyelonephritis on the left. However, her UA is not impressive and this may be a walled-off renal abscess. 2. Diabetes mellitus, not well controlled and contributing to her present illness. 3. Hepatic steatosis, probably responsible for her elevated liver function tests. RECOMMENDATION: 1. Agree with piperacillin day 1. 2. If her urine culture reveals resistant organism, adjust her antibiotic accordingly. 3. If not improved in another 2 days, consider drainage of the fluid collection, especially if her urine culture reveals no growth. Thank you for asking me to see her. Call if questions. KWAME IVY M.D. PROTOZOOLOGY TEACHER PROTOZOOLOGY TEACHER D Deondre MT: Gregor
[2021-02-06 20:15] VITALS: PULSE 71; RESP 18; O2SAT 99
[2021-02-06] MEDS: INSULIN GLARGINE (*BKC) 100 UNITS/ML 10 UNITS SUB-Q (21:13)
[2021-02-06 22:00] VITALS: BP 114/57; PULSE 71; RESP 18; TEMP 36.6; O2SAT 99
[2021-02-06 23:17] LABS: Glucose Point of Care 286 mg/dl (65-105)
[2021-02-07] MEDS: HYDROcodone/acetaminophen (*CRX) 5-325 MG TABLET 1 TAB PO ×3 (03:00→20:57)
[2021-02-07] MEDS: SODIUM CHLORIDE 0.9% IV 1,000 ML 75 ML IV CONT (03:05)
[2021-02-07 06:00] VITALS: BP 115/72; PULSE 73; RESP 18; TEMP 36.3; O2SAT 100
[2021-02-07 06:23] LABS: Hematocrit 34.5 % (37.0-47.0); Hemoglobin 11.5 g/dL (12.0-15.0); Mean Corpuscular HGB Conc 33.3 g/dl (32-36); Mean Corpuscular Hemoglobin 30.3 pg (26-34); Mean Platelet Volume 9.2 fl (7.4-10.4); Platelet Count Result 316 k/mm3 (150-375); Red Blood Count 3.79 M/mm3 (4.2-5.4); Red Cell Distribution Width 11.9 % (11.5-14.5); White Blood Count 7.6 K/mm3 (4.5-10.0)
[2021-02-07 06:37] LABS: Anion Gap 6 mmol/L (8-16); Blood Urea Nitrogen 9 mg/dL (7-17); Calcium 8.1 mg/dL (8.4-10.2); Carbon Dioxide 24 mmol/L (22-30); Chloride 105 mmol/L (98-107); Estimated CRCL calculation 82 ml/min; Estimated Glomerular Filt Rate > 60; Glucose 182 mg/dL (65-110); Magnesium 2.1 mg/dL (1.6-2.3); Potassium 4.4 mmol/L (3.4-5.0); Sodium 135 mmol/L (137-145)
[2021-02-07 08:04] LABS: Glucose Point of Care 201 mg/dl (65-105)
[2021-02-07] MEDS: INSULIN ASPART (*BKC) 100 UNITS/ML SUB-Q ×4 (08:41→17:37)
[2021-02-07] MEDS: ONDANSETRON INJ 4 MG/2 ML VIAL IV PUSH (12:40)
[2021-02-07] MEDS: ACETAMINOPHEN 325 MG TABLET 650 MG PO (12:42)
[2021-02-07 12:53] LABS: Glucose Point of Care 371 mg/dl (65-105)
[2021-02-07 14:00] VITALS: BP 104/72; PULSE 65; RESP 20; TEMP 36.2; O2SAT 100
--- NOTE | 2021-02-07 15:18 | PM.IMPN ---
Progress Note: A&P Assessment and Plan (1) Abscess of left kidney: Code(s): N15.1 - Renal and perinephric abscess Status: Acute Assessment and Plan: Patient with previous history of pyelonephritis presents with left flank pain; CT demonstrates findings consistent with left pyelonephritis and possible developing abscess measuring up to 1.8 cm. Appreciate urology recommendations regarding the possible abscess. Infectious Disease consultation appreciated. Continue IV Zosyn. Adjust antibiotics based on urine culture. Per Urology and ID, if lack of improvement or worsened signs/symptoms of infection, would consider abscess drainage with IR Continue empiric antibiotics with IV zosyn while awaiting blood and urine culture results. Noted that blood cultures were collected after receiving 2 doses of IV abx. She is afebrile and without leukocytosis. Continue supportive care with pain control and antiemetics as needed. (2) Nausea and vomiting: Code(s): R11.2 - Nausea with vomiting, unspecified Status: Acute Assessment and Plan: Secondary to pyelonephritis. Mild nausea today but tolerating diet without difficulty and no further emesis Continue supportive care as above. Will discontinue IV fluids as she has been adequately rehydrated and tolerating her diet (3) Type 2 diabetes mellitus: Qualifiers: Diabetes mellitus halfway insulin use: without halfway use Code(s): E11.9 - Type 2 diabetes mellitus without complications Status: Acute Assessment and Plan: Poorly controlled. A1c is 11.0% Blood sugars elevated in the 250-300 Will increase her Lantus to 15 units qHS and add scheduled novolog 5 units with meals in addition to moderate dose SSI. Continue accuchecks and hypoglycemic protocol Continue to hold metformin Subjective Date/time seen: 02/07/21 15:18 Interval history: date of service: 02/07/2021 Tri Simpson is a 40-year-old female with history of type 2 diabetes mellitus who is seen in follow-up for pyelonephritis. She is feeling better but is still having pain in the left back and flank which she rates as 3/10 currently. The pain extends into the lower abdomen and suprapubic region. Her pain is worse when she takes a deep breath or has any other sudden movements. She has still been feeling nauseous but no episodes of vomiting. She is tolerating her diet. She has some abdominal bloating and cramping. States she feels constipated has not had a bowel movement in 2-3 days. She denies dysuria. This morning when she wiped, she noticed some blood on the tissue paper. She was not sure if this was urinary or vaginal, but states she is not on her menstrual cycle. She has had a headache persistently throughout the day. She feels a bit dizzy when she gets up and overall feels weak and run down. She had difficulty sleeping last night and woke up several times due to her pain. Review of Systems Review of Systems: All systems reviewed & are unremarkable except as noted in HPI and below Exam Narrative: Ms. Patricia is a well-nourished, well-appearing 40-year-old male who is sitting up in bed. She appears comfortable and is in NARD. Neuro: awake, alert and oriented x4, speech clear, no focal neuro deficits noted HEENMT: normocephalic, atraumatic, EOMI, sclerae anicteric, moist oral mucosa Neck: supple, no lymphadenopathy Respiratory: clear to auscultation bilaterally, nonlabored breathing Cardio: regular rate, regular rhythm with S1-S2 Abdomen: nondistended, normoactive bowel sounds, soft, nontender to palpation, no rigidity or guarding : Extremities: no edema, erythema, cyanosis, clubbing, or tenderness to palpation, DP pulses 2+ bilaterally Skin: no rashes or lesions, warm and dry Psych: appropriate mood and affect,
[2021-02-07 17:33] LABS: Glucose Point of Care 283 mg/dl (65-105)
[2021-02-07] MEDS: MORPHINE SULFATE (*CRX) 4 MG/ML INJ 2 MG IV PUSH (20:08)
[2021-02-07] MEDS: INSULIN GLARGINE (*BKC) 100 UNITS/ML 15 UNITS SUB-Q (20:10)
[2021-02-07 21:46] VITALS: BP 138/79; PULSE 95; RESP 16; TEMP 36.7; O2SAT 100
[2021-02-08 00:55] LABS: Glucose Point of Care 181 mg/dl (65-105)
[2021-02-08] MEDS: HYDROcodone/acetaminophen (*CRX) 5-325 MG TABLET 1 TAB PO (03:48)
[2021-02-08 06:00] VITALS: BP 104/59; PULSE 72; RESP 16; TEMP 36.6; O2SAT 98
[2021-02-08] MEDS: ACETAMINOPHEN 325 MG TABLET 650 MG PO ×4 (06:07→22:07)
[2021-02-08 06:57] LABS: Hematocrit 34.7 % (37.0-47.0); Hemoglobin 11.7 g/dL (12.0-15.0); Mean Corpuscular HGB Conc 33.7 g/dl (32-36); Mean Corpuscular Hemoglobin 29.9 pg (26-34); Mean Corpuscular Volume 88.7 fl (80-100); Mean Platelet Volume 9.3 fl (7.4-10.4); Platelet Count Result 346 k/mm3 (150-375); Red Blood Count 3.91 M/mm3 (4.2-5.4); Red Cell Distribution Width 11.8 % (11.5-14.5); White Blood Count 8.8 K/mm3 (4.5-10.0)
[2021-02-08 07:02] LABS: Anion Gap 8 mmol/L (8-16); Blood Urea Nitrogen 9 mg/dL (7-17); Calcium 8.6 mg/dL (8.4-10.2); Carbon Dioxide 26 mmol/L (22-30); Chloride 102 mmol/L (98-107); Estimated CRCL calculation 65 ml/min; Estimated Glomerular Filt Rate > 60; Glucose 144 mg/dL (65-110); Potassium 4.1 mmol/L (3.4-5.0); Sodium 136 mmol/L (137-145)
[2021-02-08 07:46] LABS: Glucose Point of Care 164 mg/dl (65-105)
[2021-02-08] MEDS: INSULIN ASPART (*BKC) 100 UNITS/ML SUB-Q ×5 (08:18→17:12)
[2021-02-08 11:44] LABS: Glucose Point of Care 290 mg/dl (65-105)
[2021-02-08 14:00] VITALS: BP 126/71; PULSE 77; RESP 18; TEMP 37.1; O2SAT 97
--- NOTE | 2021-02-08 14:57 | PM.IMPN ---
Progress Note: A&P Assessment and Plan (1) Abscess of left kidney: Code(s): N15.1 - Renal and perinephric abscess Status: Acute Assessment and Plan: Patient with previous history of pyelonephritis presents with left flank pain; CT demonstrates findings consistent with left pyelonephritis and possible developing abscess measuring up to 1.8 cm. Appreciate urology recommendations regarding the possible abscess. Infectious Disease consultation appreciated. Continue IV Zosyn (day 3). Adjust antibiotics based on urine culture. Per Urology and ID, if lack of improvement or worsened signs/symptoms of infection, would consider abscess drainage with IR Urine culture growing multi drug-resistant ESBL E coli. Blood cultures no growth thus far. Noted that blood cultures were collected after receiving 2 doses of IV abx. She is afebrile and without leukocytosis. Continue supportive care with pain control and antiemetics as needed. (2) Nausea and vomiting: Code(s): R11.2 - Nausea with vomiting, unspecified Status: Acute Assessment and Plan: Secondary to pyelonephritis. Mild nausea today but tolerating diet without difficulty and no further emesis Continue supportive care as above. (3) Type 2 diabetes mellitus: Qualifiers: Diabetes mellitus termite control service representative insulin use: without termite control service representative use Code(s): E11.9 - Type 2 diabetes mellitus without complications Status: Acute Assessment and Plan: Poorly controlled. A1c is 11.0% Blood sugars elevated 144 fasting up to 290 before lunch today. Will increase her Lantus to 20 units qHS and continue scheduled Novolog 5 units with meals in addition to moderate dose SSI. Continue accuchecks and hypoglycemic protocol Continue to hold metformin Subjective Date/time seen: 02/08/21 14:45 Interval history: Tri Patricia is a 40-year-old female with history of type 2 diabetes mellitus who is seen in follow-up for pyelonephritis. She reports feeling a bit better overall but is still having pain to left flank which she rates 3/10 at present. Pain is worse with taking deep breaths or sudden movements. She reports some mild nausea without vomiting today. She has eaten a little today but not very hungry. Denies chest pain or shortness of breath. Review of Systems Review of Systems: All systems reviewed & are unremarkable except as noted in HPI and below Exam Narrative: General: Female resting supine in bed in no acute distress. Winces in pain a bit when adjusting herself in bed. HEENT: Normocephalic, EOMI, oral mucosa moist. Cardiovascular: Rate and rhythm are regular. Respiratory: Lungs clear to auscultation bilaterally. Respirations even and non-labored. Tolerating room air. Abdomen: Soft, non-distended, bowel sounds present. Tenderness to palpation of left upper abdomen/flank. + L CVA tenderness. Extremities: Peripheral pulses intact. No edema, some pain to palpation SARAH lower legs reported. Neuro: Awake and alert; answering questions appropriately. No focal neurological deficits. Speech is clear. Objective Data Vital Signs Vital Signs: Vital Signs - 24 hr 02/07/21 21:46 02/08/21 06:00 02/08/21 14:00 Temperature 98.0 F 97.8 F 98.7 F Pulse Rate 95 72 77 Respiratory Rate 16 16 18 Blood Pressure 138/79 104/59 L 126/71 Pulse Oximetry 100 98 97 Intake/Output Intake/Output: Intake & Output 02/05/21 02/06/21 02/07/21 02/08/21 23:59 23:59 23:59 23:59 Intake Total 1000 2040 3260 1160 Balance 1000 2040 3260 1160 Meds/Results Medications: Active Medications Generic Name Dose Route Start Last Admin Trade Name Freq PRN Reason Stop Dose Admin Acetaminophen 650 mg 02/06/21 02:28 02/08/21 12:38 Acetaminophen 325 Mg Tablet PO 650 mg Q4H PRN Administration Mild Pain (1-3) or
[2021-02-08 16:51] LABS: Glucose Point of Care 265 mg/dl (65-105)
[2021-02-08] MEDS: INSULIN GLARGINE (*BKC) 100 UNITS/ML 20 UNITS SUB-Q (20:11)
[2021-02-08 21:07] VITALS: BP 126/76; PULSE 74; RESP 16; TEMP 36.6; O2SAT 100
[2021-02-08 21:47] LABS: Glucose Point of Care 341 mg/dl (65-105)
[2021-02-09 05:21] VITALS: BP 120/67; PULSE 73; RESP 18; TEMP 37; O2SAT 99
[2021-02-09 06:38] LABS: Hematocrit 37.4 % (37.0-47.0); Hemoglobin 12.9 g/dL (12.0-15.0); Mean Corpuscular HGB Conc 34.5 g/dl (32-36); Mean Corpuscular Hemoglobin 30.6 pg (26-34); Mean Corpuscular Volume 88.8 fl (80-100); Platelet Count Result 403 k/mm3 (150-375); Red Blood Count 4.21 M/mm3 (4.2-5.4); Red Cell Distribution Width 11.9 % (11.5-14.5); White Blood Count 9.1 K/mm3 (4.5-10.0)
[2021-02-09 06:53] LABS: Anion Gap 8 mmol/L (8-16); Blood Urea Nitrogen 10 mg/dL (7-17); Calcium 9.3 mg/dL (8.4-10.2); Carbon Dioxide 27 mmol/L (22-30); Chloride 101 mmol/L (98-107); Estimated CRCL calculation 65 ml/min; Estimated Glomerular Filt Rate > 60; Glucose 156 mg/dL (65-110); Magnesium 1.9 mg/dL (1.6-2.3); Potassium 4.4 mmol/L (3.4-5.0); Sodium 136 mmol/L (137-145)
[2021-02-09 08:24] LABS: Glucose Point of Care 182 mg/dl (65-105)
[2021-02-09] MEDS: INSULIN ASPART (*BKC) 100 UNITS/ML SUB-Q ×3 (08:48→12:41)
[2021-02-09] MEDS: HYDROcodone/acetaminophen (*CRX) 5-325 MG TABLET 1 TAB PO (08:56)
--- NOTE | 2021-02-09 12:57 | PM.DS ---
DS: Admitting Diagnosis Admitting Diagnosis Pyelonephritis DS: Discharge Diagnosis Discharge Diagnosis (1) Abscess of left kidney: Code(s): N15.1 - Renal and perinephric abscess Status: Acute Assessment and Plan: Date of Admission 02/06/21 Date of Discharge 02/09/21 Ms. Patricia is a 40yo F with previous history of pyelonephritis who presented to the ED for evaluation of left flank pain. CT demonstrated findings consistent with left pyelonephritis and possible developing abscess measuring up to 1.8 cm. She was evaluated by urology and infectious disease regarding the possible abscess. She was treated with 4 days of broad-spectrum antibiotics with IV Zosyn. Urine culture grew multi drug-resistant ESBL E coli. Blood cultures are negative. She remains afebrile and without leukocytosis. Continue supportive care with pain control and antiemetics as needed. She is discharged with oral macrobid to complete 14-day course total, based on urine culture sensitivities. Her left flank pain is still present but improved. She is hemodynamically stable for discharge on 02/09/21 with instructions to repeat CT abdomen/pelvis in 6-8 weeks and then follow up with urology. (2) Nausea and vomiting: Code(s): R11.2 - Nausea with vomiting, unspecified Status: Acute Assessment and Plan: Secondary to pyelonephritis. Diet advanced slowly. Improved with antiemetics. (3) Type 2 diabetes mellitus: Qualifiers: Diabetes mellitus care home insulin use: without terminal press operator use Code(s): E11.9 - Type 2 diabetes mellitus without complications Status: Acute Assessment and Plan: Poorly controlled. A1c is 11.0%. Metformin held due to contrast studies, resumed at discharge. Follow up with PCP. Encouraged tight glycemic control. DS: Summary Hospital Course Hospital Course: See above Time Spent with Patient Time attestation: Total time spent providing and/or coordinating discharge services: 35 minutes Exam Narrative: General: Female resting supine in bed in no acute distress. HEENT: Normocephalic, EOMI, oral mucosa moist. Cardiovascular: Rate and rhythm are regular. Respiratory: Lungs clear to auscultation bilaterally. Respirations even and non-labored. Tolerating room air. Abdomen: Soft, non-distended, bowel sounds present. Tenderness to palpation of left upper abdomen/flank. Extremities: Peripheral pulses intact. No edema, some pain to palpation SARAH lower legs reported. Neuro: Awake and alert; answering questions appropriately. No focal neurological deficits. Speech is clear. DS: Data Data Completed and Pending Labs on day of discharge: Labs from last 24 hours 02/09/21 02/09/21 02/09/21 08:19 06:04 06:04 WBC 9.1 RBC 4.21 Hgb 12.9 Hct 37.4 MCV 88.8 MCH 30.6 MCHC 34.5 RDW 11.9 Plt Count 403 H MPV 9.0 Sodium 136 L Potassium 4.4 Chloride 101 Carbon Dioxide 27 Anion Gap 8 BUN 10 Creatinine 0.90 Estim Creat Clear Calc 65 Estimated GFR > 60 Glucose 156 H POC Capillary Glucose 182 H Calcium 9.3 Magnesium 1.9 02/08/21 02/08/21 20:06 16:46 WBC RBC Hgb Hct MCV MCH MCHC RDW Plt Count MPV Sodium Potassium Chloride Carbon Dioxide Anion Gap BUN Creatinine Estim Creat Clear Calc Estimated GFR Glucose POC Capillary Glucose 341 H 265 H Calcium Magnesium Preliminary micro results at discharge 02/06/21 10:35 Blood Culture - Preliminary Blood 02/06/21 10:37 Blood Culture - Preliminary Blood Discharge Plan Discharge Attending physician on discharge: Lisa Salmon Consulting providers: Sheila Smith ; Adrián Rivera ; Bridget Guerrero ; Cedrick Sierra ; Darien Frank ; Kimani Felder ;
[2021-02-09 13:28] LABS: Glucose Point of Care 335 mg/dl (65-105)
[2021-02-09 14:00] VITALS: BP 100/75; PULSE 70; RESP 24; TEMP 36.8; O2SAT 100
== END 2021-02-09 16:10 | disposition home or self-care (01) | DRG 463 ==
LOC: ANHED 02-06 02:57 → ANH3MEDSUR 02-06 03:24
PROVIDERS: Emergency Medicine; Physician Assistant; Admitting Provider Internal Medicine; Emergency Provider Emergency Medicine; PCP Physician Assistant; Visit Provider Physician Assistant
DX: N10 Acute pyelonephritis (principal); N15.1 Renal and perinephric abscess; N12 Tubulo-interstitial nephritis, not specified as acute or chronic; B96.20 Unspecified Escherichia coli [E. coli] as the cause of diseases classified elsewhere; Z16.24 Resistance to multiple antibiotics; E11.9 Type 2 diabetes mellitus without complications; K76.0 Fatty (change of) liver, not elsewhere classified; Z90.49 Acquired absence of other specified parts of digestive tract; Z86.16 Personal history of COVID-19
CPT/HCPCS: 36415; 71046; 71260; 74176; 74177; 80048; 80053; 81001; 81025; 82948; 83036; 83690; 83735; 84484; 85025; 85027; 85380; 87040; 87077; 87086; 87088; 87186; 93005; 93970; 96361; 96365; 96366; 96375; 96376; 99285; A9270; G0378; G0379; J1815; J2270; J2405; J2543; J2765; J7030; Q9967

== ENCOUNTER 2021-10-12 16:47 | Emergency (ER) | payer OTHER, SELFPAY ==
[2021-10-12 17:03] VITALS: BP 116/75; PULSE 118; RESP 16; TEMP 36.9; O2SAT 100
[2021-10-13 00:10] LABS: Add Urine Microscopic? YES; Appearance Urine Cloudy (Clear); Bacteria Urine 2+ /hpf; Bilirubin Urine Negative (Negative); Blood Urine Negative (Negative); Color Urine Yellow (Yellow); Glucose Urine UA 3+ mg/dL (Negative); Ketones Urine 1+ mg/dL (Negative); Leukocyte Esterase Ur Negative LEU/UL (Negative); Nitrate Urine Positive (Negative); Protein Urine 2+ mg/dL (Negative); RBC Urine 0-2 /hpf (0-2); Specific Grav Ur 1.023 (1.001-1.035); Squamous Epithelial Cell Urine Many /hpf (Few); Urobilinogen Urine Negative mg/dL (<2.0); WBC Urine 16-20 /hpf
== END 2021-10-12 17:41 | disposition left against medical advice (07) ==
LOC: ANHED 17:17
PROVIDERS: Emergency Provider Emergency Medicine; PCP Physician Assistant
DX: R10.9 Unspecified abdominal pain (principal)
CPT/HCPCS: 81001; 87086; 99199

== ENCOUNTER 2021-10-12 17:24 | Emergency (ER) | payer OTHER, SELFPAY ==
[2021-10-12 17:33] VITALS: BP 110/85; PULSE 119; RESP 20; TEMP 38.4; O2SAT 98
[2021-10-12 17:41] VITALS: BP 110/85; PULSE 119; RESP 20; TEMP 38.4; O2SAT 98
--- NOTE | 2021-10-12 17:51 | ED.NAVMDI ---
HPI - Nausea/Vomiting/Diarrhea General Chief complaint: Nausea/Vomiting/Diarrhea Stated complaint: abd pain/fever/vomiting Time Seen by Provider: 10/12/21 17:39 Source: patient and RN notes reviewed Mode of arrival: ambulatory Limitations: no limitations History of Present Illness HPI Narrative: Patient presents today with a 2-day history of subjective fever and generalized abdominal pain with vomiting. States she vomits every time she tries to take any fluids. Denies diarrhea or any urinary symptoms. Pain radiates to the bilateral flanks. States she has tried Tylenol, but seems to vomited up every time she tries to take it. History of diabetes. Prior to arrival, patient was in the ER at [facility], but decided the wait was too long so she came here for evaluation. MD elicited complaint: nausea, vomiting and abdominal pain Related Data Home Medications Medication Instructions Recorded Confirmed metformin 1,000 mg PO BID 02/26/20 10/12/21 insulin lispro [Humalog KwikPen See Rx Instructions .ROUTE .COMPLEX 02/06/21 10/12/21 Insulin] Allergies Allergy/AdvReac Type Severity Reaction Status Date / Time No Known Allergies Allergy Verified 10/12/21 17:32 Review of Systems Review of Systems: CONSTITUTIONAL: Denies body aches, fever, chills, or sweats. EYES: Denies visual changes, redness, or discharge. ENT: Denies rhinorrhea, congestion, sore throat, or otalgia. CARDIOVASCULAR: Denies chest pain, palpitations, or edema. RESPIRATORY: Denies cough or dyspnea. GASTROINTESTINAL: Denies diarrhea.+ Nausea, vomiting, abdominal pain GENITOURINARY: Denies dysuria or hematuria. SKIN: Denies rash, itching, or wounds. MUSCULOSKELETAL: Denies back pain, joint pain, or myalgia. NEUROLOGIC: Denies headache, numbness, tingling, or weakness. PSYCH: Denies depression or anxiety. FOR[facility]LY [facility], [facility] Past Medical History Medical History (Updated 10/12/21 @ 17:55 by Terese Grossman, ABIDA, PRINCE) COVID-19 (~02/26/20) Hepatic steatosis Type 2 diabetes mellitus Surgical History Surgical History History of cholecystectomy Family History Family History Mother Diabetes mellitus Social History Social History Social History: Surrogate decision maker: Len Maradiaga, friend. Code status: Full code. Smoking status: Never smoker Alcohol intake: never Substance use: never Substance use type: does not use Additional living arrangements comments: Lives in [place] with family. Gender identity (if verbalized by the patient): Female Spiritual care concerns: No Comments At time of signature, I have reviewed and agree with nursing past medical, surgical, social and family history unless otherwise noted. Please see nursing chart for further information. There is no relevant family history pertinent to the presenting complaint Exam Narrative: GENERAL: Ill-appearing, well-nourished, and in no acute distress. HEAD: Normocephalic, atraumatic. EYES: EOMI. No redness or drainage. Conjunctivae normal. ENT: Mucous membranes pink and moist. NECK: Normal AROM. Supple. No lymphadenopathy. CHEST: No respiratory distress. Clear to auscultation. HEART: Regular rate and rhythm. No murmur appreciated. Normal peripheral pulses. ABDOMEN: Soft, nondistended, normal active bowel sounds.+ Tender throughout. Bilateral CVAT EXTREMITIES: Normal range of motion. No edema. SKIN: Warm, dry, no rash. Capillary refill normal. Normal skin turgor. NEURO: No focal deficits. Alert and oriented x3. Gait steady. PSYCH: Normal affect. No signs of depression or anxiety. Course Course Level of Care: Express Care Visit Vital Signs Vital signs: Vital Signs Temperature 101.2 F H 10/12/21 17:33 Pulse Rate 119 H 10/12/21 17:33 Respiratory Rate 20 04
[2021-10-12] MEDS: ONDANSETRON HCL ODT 4 MG TABLET 8 MG SUBLINGUAL (17:54)
== END 2021-10-12 17:52 | disposition short-term general hospital (02) ==
PROVIDERS: Emergency Provider Nurse Practitioner
DX: R10.84 Generalized abdominal pain (principal); E11.9 Type 2 diabetes mellitus without complications; K76.0 Fatty (change of) liver, not elsewhere classified; Z86.16 Personal history of COVID-19
CPT/HCPCS: 99213; A9270; G0463

== ENCOUNTER 2021-10-12 18:10 | Emergency (ER) | payer OTHER, SELFPAY ==
--- NOTE | ~2021-10-12 | CT_ITS ---
EXAMINATION: CT abdomen pelvis wo con DATE: 10/13/2021 00:39 INDICATION: Transverse abdominal pain and bilateral flank pain TECHNIQUE: Computed tomography (CT) of the abdomen and pelvis was performed without intravenous contr ast. The dose-length product (DLP) was 428.78 mGy-cm. Automated exposure control and iterative recons truction technique were employed. COMPARISON: 02/06/2021 FINDINGS: The lung bases are clear. The heart size is normal. The gallbladder is surgically absent. T he liver, spleen, pancreas, and adrenal glands are normal. There are areas of scarring in the kidneys , likely related to prior pyelonephritis. No stones are identified in the kidneys, ureters, or bladde r. There is no hydronephrosis or hydroureter. No pathologically enlarged abdominal or pelvic lymph no semaj are identified. There is no free intraperitoneal gas or evidence of bowel obstruction. An IUD is present in the uterus in expected position. There is a 3.2 cm cystic lesion of the right adnexa, like ly an ovarian cyst. A large volume of colonic stool is present. The appendix is normal. IMPRESSION: 1. No urolithiasis identified. 2. Constipation. Reviewed, dictated and finalized at location A.
[2021-10-12 18:23] VITALS: BP 133/79; PULSE 125; RESP 16; TEMP 37.1; O2SAT 99
[2021-10-12 21:38] VITALS: BP 120/79; PULSE 115; RESP 18; O2SAT 100
[2021-10-12 21:51] LABS: Basophils Percent Auto 0.4 % (0.2-1.2); Eosinophils Percent Auto 0.2 % (0-4.4); Hematocrit 45.2 % (37.0-47.0); Hemoglobin 15.7 g/dL (12.0-15.0); Immature Granulocyte Absolute 0.04 K/mm3 (0.00-0.031); Immature Granulocyte Percent A 0.7 % (0-0.5); Lymphocytes Absolute Auto 1.26 K/mm3 (0.9-3.2); Lymphocytes Percent Auto 22.2 % (18.3-44.2); Mean Corpuscular HGB Conc 34.7 g/dl (32-36); Mean Corpuscular Hemoglobin 31.2 pg (26-34); Mean Corpuscular Volume 89.9 fl (80-100); Mean Platelet Volume 9.4 fl (7.4-10.4); Monocytes Absolute Auto 0.4 K/mm3 (0.1-0.6); Monocytes Percent Auto 6.2 % (2.6-8.5); Neutrophils Percent Auto 70.3 % (45.5-73.1); Platelet Count Result 277 k/mm3 (150-375); Red Blood Count 5.03 M/mm3 (4.2-5.4); Red Cell Distribution Width 12.2 % (11.5-14.5); White Blood Count 5.7 K/mm3 (4.5-10.0)
[2021-10-12 22:01] LABS: Alanine Aminotransferase 33 U/L (4-35); Albumin Level 3.6 g/dL (3.5-5.1); Alkaline Phosphatase 73 U/L (38-126); Anion Gap 7 mmol/L (8-16); Aspartate Amino Transferase 34 U/L (14-36); Bilirubin,Total 0.4 mg/dL (0.2-1.3); Blood Urea Nitrogen 13 mg/dL (7-17); Calcium 7.7 mg/dL (8.4-10.2); Carbon Dioxide 23 mmol/L (22-30); Chloride 103 mmol/L (98-107); Estimated CRCL calculation 71 ml/min; Estimated Glomerular Filt Rate > 60; Glucose 275 mg/dL (65-110); Lipase 77 U/L (23-300); Potassium 3.6 mmol/L (3.4-5.0); Sodium 133 mmol/L (137-145)
[2021-10-12 23:46] VITALS: PULSE 100; RESP 22; O2SAT 97
--- NOTE | 2021-10-13 00:26 | PC.NURSE ---
Patient taken to CT via stretcher.
[2021-10-13] MEDS: SODIUM CHLORIDE 0.9% IV 1,000 ML 999 ML IV CONT (00:45)
[2021-10-13] MEDS: ONDANSETRON INJ 4 MG/2 ML VIAL IV PUSH (00:46)
[2021-10-13] MEDS: MORPHINE SULFATE (*CRX) 4 MG/ML INJ IV PUSH (00:46)
--- NOTE | 2021-10-13 01:29 | ED.ABDPAIN ---
HPI - Abdominal Pain General Chief Complaint: Abdominal Pain Stated Complaint: abd pain, vomiting Time Seen by Provider: 10/12/21 23:45 History of Present Illness HPI narrative: Patient is a 41-year-old female who presents to the ER for abdominal cramping and vomiting. Ongoing for last 2 to 3 days. Associated with fevers. Cramping in her upper abdomen and into her back bilaterally. No urinary frequency urgency. Has history of kidney stones. Patient is having waves of vomiting that feels similar. She is passing gas. No diarrhea or constipation that she is reporting. No known sick contacts. Denies alleviating factors. Related Data Home Medications Medication Instructions Recorded Confirmed metformin 1,000 mg PO BID 02/26/20 10/12/21 insulin lispro [Humalog KwikPen See Rx Instructions .ROUTE .COMPLEX 02/06/21 10/12/21 Insulin] Allergies Allergy/AdvReac Type Severity Reaction Status Date / Time No Known Allergies Allergy Verified 10/12/21 17:32 Review of Systems Review of Systems: All systems reviewed & are unremarkable except as noted in HPI and below Constitutional: Constitutional: Reports chills, Reports fatigue and Reports fever(s) ENT: Denies nasal congestion and Denies sore throat Cardiovascular: Cardiovascular: Denies chest pain, Denies rapid heart rate and Denies radiating jaw, neck or arm pain Respiratory: Respiratory: Denies cough, Denies dyspnea and Denies wheezing Gastrointestinal: Gastrointestinal: Reports abdominal pain, Denies constipation, Denies diarrhea, Reports nausea and Reports vomiting Genitourinary: Genitourinary: Denies hematuria, Denies nocturia, Denies dysuria and Reports flank pain Musculoskeletal: Musculoskeletal: Reports back pain and Denies muscle cramps [facility] Past Medical History Medical History (Updated 10/13/21 @ 02:28 by Trace iSlverio MD) COVID-19 (~02/26/20) Hepatic steatosis Type 2 diabetes mellitus Surgical History Surgical History History of cholecystectomy Family History Family History Mother Diabetes mellitus Social History Social History Social History: Surrogate decision maker: Len Maradiaga, friend. Code status: Full code. Smoking status: Never smoker Alcohol intake: never Substance use: never Substance use type: does not use Additional living arrangements comments: Lives in [place] with family. Gender identity (if verbalized by the patient): Female Spiritual care concerns: No Exam Narrative: GENERAL: Well-appearing, well-nourished, and in no acute distress. HEAD: Normocephalic, atraumatic. EYES: PERRL and EOMI. ENT: Mucous membranes moist. CHEST: Clear to auscultation. No respiratory distress. HEART: Regular rate and rhythm. Normal peripheral pulses. ABDOMEN: Soft, nontender, nondistended. Back: No reducible midline or paraspinal muscular tenderness. Patient does have some discomfort with CVA percussion left greater than right. EXTREMITIES: Normal range of motion. No edema. SKIN: Warm, dry, no rash. NEURO: Alert and oriented x3. Course Course Emergency Course: Patient informed of results. Appears to have UTI, also suspect patient is dealing with enteritis. Will start on cephalexin and give Bentyl for cramping. Discussed return precautions and patient verbalized understanding. Vital Signs Vital signs: Vital Signs Temperature 98.8 F 10/12/21 18:23 Pulse Rate 125 H 10/12/21 18:23 Respiratory Rate 16 10/12/21 18:23 Blood Pressure 133/79 10/12/21 18:23 Pulse Oximetry 99 10/12/21 18:23 Temperature 98.8 F 10/12/21 18:23 Pulse Rate 100 10/12/21 23:46 Respiratory Rate 22 H 10/12/21 23:46 Blood Pressure 120/79 10/12/21 21:38 Pulse Oximetry 97 10/12/21 23:46 MDM - Abdominal Pain La
[2021-10-13] MEDS: CEPHALEXIN 500 MG CAPSULE PO (02:16)
[2021-10-13] MEDS: HYDROcodone/acetaminophen (*CRX) 5-325 MG TABLET 1 TAB PO (02:16)
[2021-10-13 02:22] LABS: Add Urine Microscopic? YES; Appearance Urine Cloudy (Clear); Bacteria Urine 3+ /hpf; Bilirubin Urine Negative (Negative); Blood Urine 1+ (Negative); Color Urine Yellow (Yellow); Glucose Urine UA 3+ mg/dL (Negative); Ketones Urine Trace mg/dL (Negative); Mucus Urine Rare /lpf; Protein Urine 2+ mg/dL (Negative); RBC Urine 0-2 /hpf (0-2); Specific Grav Ur 1.023 (1.001-1.035); Squamous Epithelial Cell Urine Few /hpf (Few); Urobilinogen Urine Negative mg/dL (<2.0)
[2021-10-13 02:25] LABS: Leukocyte Esterase Ur Negative LEU/UL (Negative); Nitrate Urine Positive (Negative)
[2021-10-13 02:51] VITALS: BP 112/82; PULSE 88; RESP 17; TEMP 36.6; O2SAT 97
== END 2021-10-13 02:53 | disposition home or self-care (01) ==
PROVIDERS: Emergency Provider Emergency Medicine
DX: K52.9 Noninfective gastroenteritis and colitis, unspecified (principal); N39.0 Urinary tract infection, site not specified; E11.9 Type 2 diabetes mellitus without complications; Z79.84 Long term (current) use of oral hypoglycemic drugs; Z79.4 Long term (current) use of insulin; Z86.16 Personal history of COVID-19
CPT/HCPCS: 36415; 74176; 80053; 81001; 81025; 83690; 85025; 87077; 87086; 87088; 87186; 96361; 96374; 96375; 99199; 99213; 99284; A9270; G0463; J2270; J2405; J7030